=== PATIENT | male | born 1955 | race Caucasian/White ===

== ENCOUNTER → 2019-03-19 12:52 | Outpatient (BNVA) | payer OTHER, SELFPAY | PROVIDERS: PCP Family Medicine; Visit Provider Nurse Practitioner Adult Health | DX: G62.9 Polyneuropathy, unspecified (principal); G61.0 Guillain-Barre syndrome; E11.9 Type 2 diabetes mellitus without complications; I10 Essential (primary) hypertension | CPT/HCPCS: 99213 ==

== ENCOUNTER 2019-05-16 11:29 | Outpatient (CLI) | payer OTHER, SELFPAY ==
[2019-05-16 13:06] LABS: HCT 46.7 % (40.0-50.0); HGB 16.2 g/dL (13.5-17.5); Mean Corp. HGB Concentration 34.7 g/dL (32.0-36.0); Mean Corpuscular Hemoglobin 31.9 pg (27.0-33.0); Mean Corpuscular Volume 91.9 fL (80-95); Mean Platelet Volume 11.4 fL (8.0-11.0); Platelet Count 214 x1000/uL (130-400); RBC 5.08 m/cumm (4.50-6.00); RBC Distribution Width 12.8 % (11.8-14.1); White Blood Cell Count 9.41 k/cumm (4.4-10.8)
[2019-05-16 13:18] LABS: ALT 31 U/L (12-78); AST 15 U/L (15-37); Albumin 3.8 g/dL (3.4-5.0); Alkaline Phosphatase 89 U/L (46-116); Anion Gap 10.9 mmol/L (3-11); BUN 16 mg/dL (7-18); Bilirubin, Total 0.9 mg/dL (0.2-1.0); CO2 27.1 mmol/L (21.0-32.0); CREATININE 0.99 mg/dL (0.70-1.30); Calculated LDL 81 mg/dL; Chloride 101 mmol/L (98-107); Cholesterol 141 mg/dL (50-200); Glucose 202 mg/dL (70-100); HDL Cholesterol 41 mg/dL (40-60); Potassium 4.1 mmol/L (3.5-5.1); Sodium 139 mmol/L (136-145); Total Protein 6.9 g/dL (6.4-8.2); Triglyceride 99 mg/dL (30-150)
[2019-05-16 13:19] LABS: Bilirubin Negative (Negative); Blood Negative (Negative); Clarity Clear (Clear); Glucose >=1000 mg/dL (Negative); Ketones Negative (Negative); Leukocyte Esterase Negative (Negative); Nitrite Negative (Negative); Specific Gravity 1.025 (1.005-1.025); Urobilinogen 0.2 EU/dL (Up TO 0.2)
[2019-05-16 13:21] LABS: Hemoglobin A1C 8.4 % (4.5-6.2)
[2019-05-16 13:46] LABS: Epithelial Cells Few HPF (Negative); RBC Negative (0-2); WBC 0-2 HPF (0-5)
[2019-05-16 13:47] LABS: Bacteria Few HPF (Negative); C & S Indicated? No; Casts Negative LPF (Negative); Crystals Negative HPF (Negative); Mucus Trace (Negative); Other Cells Few Spermatozoa (Negative)
[2019-05-17 10:32] LABS: PSA, Diagnostic <0.1 ng/ml (0-4.5)
== END 2019-05-16 11:49 ==
PROVIDERS: PCP Family Medicine; Visit Provider Family Medicine
DX: E11.9 Type 2 diabetes mellitus without complications (principal); E78.5 Hyperlipidemia, unspecified; I10 Essential (primary) hypertension; Z85.46 Personal history of malignant neoplasm of prostate; R39.9 Unspecified symptoms and signs involving the genitourinary system
CPT/HCPCS: 36415; 80053; 80061; 83721; 85027; 81003; 81015; 83036; 84153

== ENCOUNTER 2020-03-29 11:37 | Emergency (ER) | payer OTHER, SELFPAY ==
[2020-03-29] VITALS (27 sets, daily range): BP systolic 101–133; BP diastolic 64–85; PULSE 54–87; RESP 13–23; TEMP 36.6–36.7; O2SAT 93–98
--- NOTE | 2020-03-29 11:43 | W.ED.GENAD ---
Discharge Plan Disposition Patient Disposition: HOME Condition: Good Discharge Details Chief Complaint: SOB Clinical Impression: CHF (congestive heart failure) Primary Care Provider: Roddy Patino ED Provider: Sana Huntley Home Meds and New Rx's Prescriptions: Continued sotalol 120 mg tablet 120 mg PO DAILY RF: 0 cyanocobalamin (vitamin B-12) [Vitamin B-12] 1,000 MCG tablet 1,000 mcg PO DAILY Qty: 30 RF: 0 amlodipine 5 mg tablet 5 mg PO DAILY Qty: 90 RF: 3 hydrochlorothiazide 25 mg tablet 25 mg PO DAILY Qty: 90 RF: 4 pravastatin [Pravachol] 40 mg tablet 40 mg PO DAILY Qty: 90 RF: 4 terazosin 1 mg capsule 1 mg PO DAILY Qty: 90 RF: 3 lisinopril 40 mg tablet 40 mg PO DAILY Qty: 90 RF: 4 No Action lidocaine 5 % cream 1 applic TP QID PRN (Reason: pain) Qty: 45 RF: 2 Eliquis 5 mg tablet 5 mg PO BID Qty: 60 RF: 11 metformin 500 mg tablet 500 mg PO BID Qty: 60 RF: 11 Discharge Instructions Instructions: Heart Failure (ED) Additional Instructions: Please make dietary changes as discussed. Please take Lasix once daily temporarily as prescribed. Try to elevate your lower extremities to help fluid come out of your legs. Please follow-up with your primary care the beginning of the week, please call Tuesday morning to schedule follow-up. If you develop chest pain, increased shortness of breath, shortness of breath that limits your activities, lightheadedness, weakness or other new/worsening symptom please seek care urgently once again. Referrals: Roddy Patino [Primary Care Provider] - Discharge Data Discharge Date/Time-TO BE ENTERED AT DEPARTURE: 03/29/20 14:01 Medical Decision Making Patient is a pleasant 64-year-old gentleman presenting due to complaint of shortness of breath. States that shortness of breath began a few days ago. He is noted it is worse with exertion. Denies CP. Denies fevers or chills. No cough. Denies any hemoptysis. No pleuritic chest discomfort. Past medical history significant for alcohol abuse, atrial flutter, cardiomyopathy, diabetes, hypertension, [employer] [employer]ples? syndrome, hyperlipidemia, neuropathy, [place], neoplasm of prostate. Patient has been recommended to use Eliquis historically and states that as he was nervous about side effects, he never started the medication. Patient does report a 6 to 8 pound weight gain over the past few days. Has noted increased bilateral lower extremity swelling. He denies this feeling like his [place]ples? historically. He does report chronic discomfort in bilateral lower extremities since the onset of his [place]ples?. However, states the swelling is new. Reports that the swelling began to increase after the shortness of breath. Denies being short of breath at rest. EKG was reviewed by Dr. Verduzco. Patient is an irregularly irregular rhythm consistent with atrial fibrillation. Low voltage noted. Nonspecific T wave abnormality but no evidence of STEMI or acute ischemic changes. On exam, patient is resting comfortably. He does not appear to be in any respiratory distress. Vital signs are reassuring without abnormality. His physical exam is most notable for swelling in his bilateral lower extremities. I am concerned for potential CHF exacerbation. He does report that he has had this historically. No chest pain no evidence of ACS. Lungs are clear and patient does not have symptoms consistent with infectious etiology. Denies any back pain or symptoms consistent with dissection. I did consider PE but find this less likely based on vital signs. However, as he has been having this dyspnea, particularly with exertion, I do feel that evaluation with a d-dimer would be appropriate. Labs reviewed. Mild anemia with a hemoglobin of 12.1. Potassium slightly low at 132. Glucose elevated to 81, this is baseline for the patient. BNP is elevated at 3800. Troponins remain still less than 0.05. D-dimer pending. We will begin the patient on Lasix. Chest x-ray reviewed by radiologist: FINDINGS: Lungs: Mild pulmonary vascular congestion. No focal consolidation. Pleural space: Unremarkable. No pleural effusion. No pneumothorax. Heart/Mediastinum: Unremarkable. No cardiomegaly. Bones/joints: Unremarkable. IMPRESSION: Mild pulmonary vascular congestion. D-dimer is less than 500. Reassess the patient. He has good urinary output. Is feeling somewhat improved and is requesting discharge. Patient diagnosed with CHF exacerbation. I do not see CHF listed in his history but based on his description, it sounds of his been treated for this historically. States that when he was at [facility] previously he did have bilateral lower extremity swelling and did require Lasix for quite some time. He states that his diet has changed recently with COVID and that he is been having a large amount of [employer] ice cream. This may be contributing to his swelling. We did discuss dietary changes to help prevent this in the future. Encourage elevation of his lower extremities. We discussed inpatient versus outpatient management and he would prefer discharge at this time. He states that shortness of breath is not limiting his ability to perform his daily activities. We will continue him on Lasix for the next few days and I have asked that he follow-up with primary care the beginning of next week. Patient was given strict return precautions. All his questions and concerns were addressed and he is in agreement this plan. HPI General Mode of arrival: ambulatory. Date/Time Provider Initiated Documentation: 03/29/20 11:43. Limitations to Documentation: no limitations. Information obtained by: patient and RN notes reviewed. History of Present Illness 64 year old M presents to the emergency department with the chief complaint of shortness of breath, described as moderate and similar to prior episodes, Quality is described as other (no pain), Patient reports no radiation. Patient started experiencing this day(s) (2-4) and it has been intermittent. Immobilization improves symptom(s), No exacerbating factors reported . Patient notes shortness of breath; denies chest pain, cough, fever/chills, loss of appetite, nausea/vomiting, rash, syncope and weakness. Patient did receive the following treatments prior to arrival, none (states that he ran out of his inhaler) Related Data Home Medications Medication Instructions Recorded Confirmed cyanocobalamin (vitamin B-12) 1,000 mcg PO DAILY #30 tab-cap 02/22/17 04/01/20 [Vitamin B-12] sotalol 120 mg tablet 120 mg PO DAILY tab 06/20/18 04/01/20 amlodipine 5 mg tablet 5 mg PO DAILY #90 tab-cap 07/10/19 04/01/20 hydrochlorothiazide 25 mg tablet 25 mg PO DAILY #90 tab-cap 07/10/19 04/01/20 pravastatin 40 mg tablet 40 mg PO DAILY #90 tab-cap 07/10/19 04/01/20 terazosin 1 mg capsule 1 mg PO DAILY #90 cap 07/10/19 04/01/20 lisinopril 40 mg tablet 40 mg PO DAILY #90 tab-cap 01/09/20 04/01/20 apixaban 5 mg tablet 5 mg PO BID #60 tab 04/01/20 04/01/20 lidocaine 5 % topical cream 1 applic TP QID PRN #45 gm 04/01/20 04/01/20 metformin 500 mg tablet 500 mg PO BID #60 tab 04/01/20 04/01/20 Previous Rx's Medication Instructions Recorded amlodipine 5 mg tablet 5 mg PO DAILY #90 tab-cap 07/10/19 hydrochlorothiazide 25 mg tablet 25 mg PO DAILY #90 tab-cap 07/10/19 pravastatin 40 mg tablet 40 mg PO DAILY #90 tab-cap 07/10/19 terazosin 1 mg capsule 1 mg PO DAILY #90 cap 07/10/19 lisinopril 40 mg tablet 40 mg PO DAILY #90 tab-cap 01/09/20 apixaban 5 mg tablet 5 mg PO BID #60 tab 04/01/20 lidocaine 5 % topical cream 1 applic TP QID PRN #45 gm 04/01/20 metformin 500 mg tablet 500 mg PO BID #60 tab 04/01/20 Allergies Allergy/AdvReac Type Severity Reaction Status Date / Time codeine Allergy Severe HIVES Unverified 04/01/20 12:44 Tetanus Vaccines and Toxoid AdvReac Severe H/O Unverified 04/01/20 12:44 [place] Review of Systems Constitutional Constitutional: Reports as per HPI, Denies chills, Denies fever(s), Denies headache(s), Denies lethargy and Denies poor appetite Eyes Eyes: Denies change in vision ENT Ears, Nose, Mouth, and Throat: Denies dizziness and Denies headache(s) Cardiovascular Cardiovascular: Reports as per HPI, Reports dyspnea and Reports dyspnea on exertion Respiratory Respiratory: Reports as per HPI, Denies chest congestion, Denies cough, Denies pain on inspiration, Denies pain with cough, Reports dyspnea, Reports dyspnea on exertion and Denies wheezing Gastrointestinal Gastrointestinal: Reports as per HPI, Denies abdominal pain, Denies diarrhea, Denies nausea and Denies vomiting Genitourinary Genitourinary: Denies system reviewed and no additional complaints, except as documented (denies change in urinary habits) Musculoskeletal Musculoskeletal: Reports as per HPI and Denies back pain Integumentary/Breasts Skin/Breast: Reports as per HPI and Denies rash Neurologic Neurologic: Reports as per HPI, Denies dizziness and Denies headache(s) Allergic/Immunologic Allergic/Immunologic: Denies wheezing [facility] Social History Smoking/Tobacco Use Status: Former Tobacco Use Quit Date: 10/17/72 Second Hand Exposure: Yes Alcohol Intake: current Alcohol Intake frequency: 0-2 drinks per day Alcohol type: beer Drug use: Daily Substance use type: former substance user and marijuana Caregiver/Support person: No Household members: none Housing: house Pets and animals: Yes Pets and animals: dog(s) Sexually active: No Do you think of yourself as: straight/heterosexual Current gender identity: decline to answer What is your relationship status?: never How often do you talk on the phone with friends or family?: three or more times per week How often do you get together with friends or relatives?: decline to answer How often do you attend faith or nondenominational services?: decline to answer Do you belong to any clubs or organized social groups?: no Panel score (0-1 are the most socially isolated patients): 1 What type of physical activity do you participate in: none Sheri/Mu-Ism: None Special sheri needs: No Seatbelt use: always Drive intox or ride w/intox ready mix truck driver: No Do you feel safe at home: Yes Do you feel safe in your relationship?: Yes Exam Const General: cooperative, healthy appearing, comfortable, no acute distress and well developed Nutritional Appearance: well nourished and overweight Orientation: alert, awake and oriented x3 HENMT Head: normal to inspection Ears: hearing grossly normal bilaterally Mouth: moist mucous membranes Chest Chest: normal inspection of the chest, normal palpation of entire chest wall and no crepitus Resp Effort & Inspection: normal respiratory effort, able to speak in complete sentences and no respiratory distress Auscultation: clear to auscultation bilaterally, no rales, no rhonchi and no wheezes Cardio Rate: regular rate Rhythm: regular rhythm Heart Sounds: S1 normal and S2 normal GI Inspection: normal to inspection, no edema and non-distended Palpation: soft, no hepatosplenomegaly, not firm, no guarding, not rigid and nontender Auscultation: normal bowel sounds Back/Spine/Pelvis Back: no CVA tenderness Thoracic/Lumbar Spine: thoracic and lumbar spine normal to inspection Skin General skin exam: no rashes or lesions noted Trauma: no lacerations or abrasions Neuro General: patient alert, patient awake and patient oriented x3 Cognition: normal cognition Speech: speech normal Gait: normal gait Extrem General: normal to inspection, capillary refill normal, no calf tenderness, normal gait and pedal edema bilaterally Psych Appearance: grossly normal and well kempt Mental Status: mental status grossly normal Speech and Movement: speech and movement normal
--- NOTE | 2020-03-29 11:45 | DI.RAD_ITS ---
EXAM: XR PORTABLE CHEST AP CLINICAL HISTORY: SOB TECHNIQUE: 2D digital imaging was performed. COMPARISON: CR CHEST 2 VIEWS PA,LAT from 11/20/2016 FINDINGS: LUNGS: Mild underlying fibrotic changes. No pleural effusion or focal consolidation is seen. HEART: Mildly enlarged. Mild vascular prominence. Leads overlie the chest. IMPRESSION: Mild vascular prominence could indicate mild CHF vs chronic changes. DATA REPOSITORY: RADIATION DOSE DELIVERED:
[2020-03-29 12:23] LABS: Abs Immature Grans 0.03 k/cumm (0.0-0.09); Absolute Basophil Count 0.01 k/cumm (0.0-0.2); Absolute Eosinophil Count 0.09 k/cumm (0.0-0.7); Absolute Lymphocyte Count 1.42 k/cumm (1.2-3.4); Absolute Neutrophil Count 5.73 k/cumm (1.2-6.7); Basophils % 0.1; Eosinophils % 1.1; HCT 36.1 % (40.0-50.0); HGB 12.1 g/dL (13.5-17.5); Immature Grans % 0.4 %; Lymphocytes % 17.4; Mean Corp. HGB Concentration 33.5 g/dL (32.0-36.0); Mean Corpuscular Hemoglobin 32.2 pg (27.0-33.0); Mean Platelet Volume 9.8 fL (8.0-11.0); Platelet Count 251 x1000/uL (130-400); RBC 3.76 m/cumm (4.50-6.00); RBC Distribution Width 12.2 % (11.8-14.1); White Blood Cell Count 8.18 k/cumm (4.4-10.8)
[2020-03-29 12:40] LABS: INR 1.1 (0.9-1.1); PTT Activated 26.2 sec (21.0-31.4)
[2020-03-29 12:42] LABS: ALT 38 U/L (16-63); AST 18 U/L (15-37); Alkaline Phosphatase 98 U/L (46-116); Anion Gap 5.6 mmol/L (3-11); BUN 16 mg/dL (7-18); Bilirubin, Total 0.6 mg/dL (0.2-1.0); CO2 31.4 mmol/L (21.0-32.0); CREATININE 1.05 mg/dL (0.70-1.30); Calcium 8.8 mg/dL (8.5-10.1); Chloride 95 mmol/L (98-107); Glucose 281 mg/dL (74-106); Magnesium 1.9 mg/dL (1.8-2.4); NT-proBNP 3872 pg/mL (<300); Potassium 4.3 mmol/L (3.5-5.1); Sodium 132 mmol/L (136-145); Total Protein 6.7 g/dL (6.4-8.2); Troponin I < 0.05 ng/mL (<0.06)
--- NOTE | 2020-03-29 12:57 | DI.VRAD_ITS ---
PROCEDURE INFORMATION: Exam: XR Chest, 1 View Exam date and time: 03/29/2020 12:42 PM Age: 64 years old Clinical indication: Shortness of breath TECHNIQUE: Imaging protocol: XR of the chest Views: 1 view. COMPARISON: CR CHEST 2 VIEWS PA,LAT 11/20/2016 9:04 AM FINDINGS: Lungs: Mild pulmonary vascular congestion. No focal consolidation. Pleural space: Unremarkable. No pleural effusion. No pneumothorax. Heart/Mediastinum: Unremarkable. No cardiomegaly. Bones/joints: Unremarkable. IMPRESSION: Mild pulmonary vascular congestion. Dictated and Authenticated by: Ghada English MD. Ordering:FLOWER Hood MD
[2020-03-29] MEDS: Furosemide 20 MG/2 ML VIAL IVP (13:04)
[2020-03-29 13:25] LABS: D-Dimer 498 ng/mlFEU (<500)
== END 2020-03-29 14:01 | disposition home or self-care (01) ==
LOC: ER 14:01
PROVIDERS: Emergency Provider Physician Assistant; PCP Family Medicine
DX: I50.9 Heart failure, unspecified (principal); R63.5 Abnormal weight gain; I11.0 Hypertensive heart disease with heart failure; E11.9 Type 2 diabetes mellitus without complications; Z87.891 Personal history of nicotine dependence
CPT/HCPCS: 36415; 80053; 93005; 96374; 99285; 71045; 83735; 83880; 84484; 85025; 85379; 85610; 85730; 93010; J1941

== ENCOUNTER → 2020-04-01 12:29 | Outpatient (BNVA) | payer OTHER, SELFPAY | PROVIDERS: PCP Family Medicine; Visit Provider Nurse Practitioner Adult Health | DX: E11.42 Type 2 diabetes mellitus with diabetic polyneuropathy; G61.0 Guillain-Barre syndrome; I10 Essential (primary) hypertension; Z79.84 Long term (current) use of oral hypoglycemic drugs | CPT/HCPCS: 99213 ==

== ENCOUNTER 2020-04-16 04:29 | Outpatient (CLI) | payer OTHER, SELFPAY ==
[2020-04-16 12:53] LABS: HCT 39.2 % (40.0-50.0); HGB 12.7 g/dL (13.5-17.5); Mean Corp. HGB Concentration 32.4 g/dL (32.0-36.0); Mean Corpuscular Hemoglobin 30.8 pg (27.0-33.0); Mean Corpuscular Volume 94.9 fL (80-95); Mean Platelet Volume 10.5 fL (8.0-11.0); Platelet Count 288 x1000/uL (130-400); RBC 4.13 m/cumm (4.50-6.00); RBC Distribution Width 12.5 % (11.8-14.1); Reticulocyte 2.2 % (0.5-2.4); White Blood Cell Count 8.47 k/cumm (4.4-10.8)
[2020-04-16 13:04] LABS: Iron 78 ug/dL (65-175); Total Iron Binding Capacity 299 ug/dL (250-450); Transferrin Sat 26 % (20-55)
[2020-04-16 13:18] LABS: Ferritin 330 ng/mL (26-388)
== END 2020-04-16 04:49 ==
PROVIDERS: PCP Family Medicine; Visit Provider Family Medicine
DX: D64.9 Anemia, unspecified (principal)
CPT/HCPCS: 36415; 85027; 82728; 83540; 83550; 85045

== ENCOUNTER 2020-08-09 13:29 | Emergency (ER) | payer OTHER, SELFPAY ==
[2020-08-09 13:48] VITALS: BP 115/62; PULSE 74; RESP 18; TEMP 36.6; O2SAT 98
--- NOTE | 2020-08-09 14:00 | W.ED.GENAD ---
Discharge Plan Disposition Patient Disposition: HOME Condition: Good Discharge Details Clinical Impression: Muscle spasm Primary Care Provider: Roddy Patino ED Provider: Sana Huntley Home Meds and New Rx's Prescriptions: New lidocaine [Lidoderm] 5 % adhesive patch,medicated 1 patch topical DAILY PRN (Reason: pain) Qty: 15 RF: 0 methocarbamol 500 mg tablet 500 mg PO TID PRN (Reason: muscle spasm) Qty: 14 RF: 0 Continued (DME) blood-glucose meter [Blood Glucose Monitoring] Kit See Rx Instructions .ROUTE .MEDSUPPLY Qty: 1 RF: 0 (DME) Blood Glucose Test Strip See Rx Instructions .ROUTE .MEDSUPPLY Qty: 200 RF: 3 (DME) lancets 30 gauge misc See Rx Instructions .ROUTE .MEDSUPPLY Qty: 200 RF: 3 metformin 500 mg tablet 1,000 mg PO .q12 Qty: 360 RF: 3 cyanocobalamin (vitamin B-12) [Vitamin B-12] 1,000 MCG tablet 1,000 mcg PO DAILY Qty: 30 RF: 0 amlodipine 5 mg tablet 5 mg PO DAILY Qty: 90 RF: 3 Eliquis 5 mg tablet 5 mg PO BID Qty: 60 RF: 11 hydrochlorothiazide 25 mg tablet 25 mg PO DAILY Qty: 90 RF: 4 lidocaine 5 % cream 1 applic TP QID PRN (Reason: pain) Qty: 45 RF: 2 lisinopril 40 mg tablet 40 mg PO DAILY Qty: 90 RF: 4 pravastatin [Pravachol] 40 mg tablet 40 mg PO DAILY Qty: 90 RF: 4 terazosin 1 mg capsule 1 mg PO DAILY Qty: 90 RF: 3 sotalol 120 mg tablet 120 mg PO DAILY Qty: 90 RF: 3 Discharge Instructions Instructions: Muscle Spasm (ED) Additional Instructions: Your exam and history is most concerning for muscle spasm. Please increase water intake. Please encourage frequent ambulation and gentle stretching as discussed. Referral for physical therapy is attached. Please continue with your Tylenol 1000 mg 3 times daily. You may use the methocarbamol as prescribed to help with muscle spasm. Please do not drive while taking this medication as it can cause sedation. You may continue with the Lidoderm patches. These are available [id number]. Please use as directed on the box. Please keep your upcoming appointment with your primary care provider. If you develop any new radiating pain, fevers or chills, rash, weakness, sensory changes or other new/worsening symptom please seek care urgently once again. Stand Alone Forms: Physical Therapy Referral Referrals: Roddy Patino [Primary Care Provider] - Discharge Data Discharge Date/Time-TO BE ENTERED AT DEPARTURE: 08/09/20 15:37 Medical Decision Making Patient is an 64-year-old gentleman presenting today with chief complaint of right lower back pain. Reports this pain began approximately 2 weeks ago after moving large amount of furniture. States the pain has been consistent. Notes it is worse after prolonged periods of sitting or laying. States is worse in the morning. He is also combine driver occupationally and reports that after sitting for prolonged period of time is increased discomfort. He denies any fevers or chills. No fall or trauma. Denies any radiating pain. No midline tenderness. He has not had pain like this historically On exam, patient is resting comfortably. He has good range of motion of his back, forward to motion of his right lower extremity. No midline pain. No paraspinal tenderness. Pain is more lateral over the lumbar area of the back. No saddle paresthesias, 2+ distal pulses. There is a focal area of swelling associated discomfort that is consistent with muscle spasm. I did evaluate and ultrasound do not see any evidence to suggest an infection. Patient will be treated with Tylenol and lidocaine. We will also refer to physical therapy. We discussed the utility of muscle relaxants. He would like to try this for home use. Is he did drive himself here, will hold off on administering this at this point. He will not drive will take this medication. Return precautions were discussed. We will follow up with his primary care in the next 1 to 2 weeks for reevaluation. All his questions and concerns were addressed and is agreed with plan. HPI General Mode of arrival: ambulatory. Date/Time Provider Initiated Documentation: 08/09/20 14:00. Limitations to Documentation: no limitations. Information obtained by: patient and RN notes reviewed. History of Present Illness 64 year old M presents to the emergency department with the chief complaint of right lower back pain, described as moderate, with intensity rated at 7. Quality is described as aching, and is localized to the back. Patient reports no radiation. Patient started experiencing this week(s) (2) and it has been constant. Immobilization improves symptom(s), Movement worsens symptoms . Patient notes no other symptoms.. Patient did receive the following treatments prior to arrival, none Related Data Home Medications Medication Instructions Recorded Confirmed cyanocobalamin (vitamin B-12) 1,000 mcg PO DAILY #30 tab-cap 02/22/17 05/21/20 [Vitamin B-12] amlodipine 5 mg tablet 5 mg PO DAILY #90 tab-cap 04/24/20 05/21/20 apixaban 5 mg tablet 5 mg PO BID #60 tab 04/24/20 05/21/20 hydrochlorothiazide 25 mg tablet 25 mg PO DAILY #90 tab-cap 04/24/20 05/21/20 lidocaine 5 % topical cream 1 applic TP QID PRN #45 gm 04/24/20 05/21/20 lisinopril 40 mg tablet 40 mg PO DAILY #90 tab-cap 04/24/20 05/21/20 pravastatin 40 mg tablet 40 mg PO DAILY #90 tab-cap 04/24/20 05/21/20 terazosin 1 mg capsule 1 mg PO DAILY #90 cap 04/24/20 05/21/20 Blood Glucose Test #200 each NS 05/21/20 05/21/20 blood-glucose meter #1 each 05/21/20 05/21/20 lancets 30 gauge #200 each 05/21/20 05/21/20 metformin 500 mg tablet 1,000 mg PO .q12 #360 tab 05/21/20 05/21/20 sotalol 120 mg tablet 120 mg PO DAILY #90 tab 07/27/20 lidocaine [Lidoderm] 1 patch TOPICAL DAILY PRN #15 ea 08/09/20 methocarbamol 500 mg PO TID PRN #14 tab 08/09/20 Previous Rx's Medication Instructions Recorded amlodipine 5 mg tablet 5 mg PO DAILY #90 tab-cap 04/24/20 apixaban 5 mg tablet 5 mg PO BID #60 tab 04/24/20 hydrochlorothiazide 25 mg tablet 25 mg PO DAILY #90 tab-cap 04/24/20 lidocaine 5 % topical cream 1 applic TP QID PRN #45 gm 04/24/20 lisinopril 40 mg tablet 40 mg PO DAILY #90 tab-cap 04/24/20 pravastatin 40 mg tablet 40 mg PO DAILY #90 tab-cap 04/24/20 terazosin 1 mg capsule 1 mg PO DAILY #90 cap 04/24/20 Blood Glucose Test #200 each NS 05/21/20 blood-glucose meter #1 each 05/21/20 lancets 30 gauge #200 each 05/21/20 metformin 500 mg tablet 1,000 mg PO .q12 #360 tab 05/21/20 sotalol 120 mg tablet 120 mg PO DAILY #90 tab 07/27/20 lidocaine [Lidoderm] 1 patch TOPICAL DAILY PRN #15 ea 08/09/20 methocarbamol 500 mg PO TID PRN #14 tab 08/09/20 Allergies Allergy/AdvReac Type Severity Reaction Status Date / Time codeine Allergy Severe HIVES Unverified 08/09/20 13:58 Tetanus Vaccines and Toxoid AdvReac Severe H/O Unverified 08/09/20 13:58 [place] General Stated Complaint: Nk/Back Pain GALE: 4 Review of Systems Constitutional Constitutional: Reports as per HPI, Denies chills, Denies fatigue, Denies fever(s), Denies frequent falls and Denies headache(s) Eyes Eyes: Denies change in vision ENT Ears, Nose, Mouth, and Throat: Denies headache(s) Cardiovascular Cardiovascular: Denies chest pain, Denies dyspnea and Denies dyspnea on exertion Respiratory Respiratory: Denies cough, Denies dyspnea and Denies dyspnea on exertion Gastrointestinal Gastrointestinal: Denies abdominal pain, Denies change in bowel habits and Denies fecal incontinence Genitourinary Genitourinary: Reports as per HPI, Denies urinary hesitancy and Denies urinary incontinence Musculoskeletal Musculoskeletal: Reports as per HPI, Reports back pain, Denies muscle weakness, Denies numbness, Denies radiating pain into limb, Reports stiffness and Denies tingling Integumentary/Breasts Skin/Breast: Reports as per HPI and Denies rash Neurologic Neurologic: Reports as per HPI, Denies frequent falls, Denies headache(s), Denies localized weakness, Denies numbness, Denies radicular pain, Denies sensory deficit, Denies tingling and Denies paresthesias Endocrine Endocrine: Denies fatigue [facility] Medical History (Updated 08/09/20 @ 15:32 by RODERICK Lovett) Anemia BPH (benign prostatic hyperplasia) Diabetes mellitus (03/14/13) Essential hypertension (09/11/13) 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 Primary malignant neoplasm of prostate S/P Implanted seeds-09/24 Surgical History Hx of melanoma excision Family History Mother , 78 Cancer Father , 83 Brain cancer Brother Essential hypertension Brother Diabetes Brother Stroke Social History Smoking/Tobacco Use Status: Former Tobacco Use Quit Date: 10/17/72 Second Hand Exposure: Yes Alcohol Intake: current Alcohol Intake frequency: a few times a week Alcohol type: beer Drug use: Occasionally Substance use type: former substance user and marijuana Caregiver/Support person: No Housing: house Pets and animals: Yes Pets and animals: dog(s) Sexually active: No Do you think of yourself as: straight/heterosexual What is your relationship status?: never How often do you talk on the phone with friends or family?: three or more times per week How often do you get together with friends or relatives?: decline to answer How often do you attend protestant or presybeterian services?: decline to answer Do you belong to any clubs or organized social groups?: no Panel score (0-1 are the most socially isolated patients): 1 What type of physical activity do you participate in: none Sheri/Lutheran: None Special sheri needs: No Seatbelt use: always Helmet use: Yes Drive intox or ride w/intox combine driver: No Do you feel safe at home: Yes Do you feel safe in your relationship?: Yes Exam Const General: cooperative, healthy appearing, comfortable, no acute distress, well developed and well groomed Nutritional Appearance: well nourished and overweight Orientation: alert and awake Eyes General: appearance normal, both eyes and all related structures Neck Neck: normal visual inspection, full ROM, no lymphadenopathy and no meningeal signs Resp Effort & Inspection: normal respiratory effort and able to speak in complete sentences Auscultation: clear to auscultation bilaterally, no rales, no rhonchi and no wheezes Cardio Rate: regular rate Rhythm: regular rhythm Heart Sounds: S1 normal and S2 normal Back/Spine/Pelvis Back/spine/pelvis image: 1. focal area of discomfort and swelling consistent with muscle spasm. Area explored with US, no fluid collection noted. No erythema. No rash. No midline tenderness. Range of motion of the right lower extremity although extension backwards does increase the discomfort over this area. He also has more of a tightness with forward flexion. He has full range of motion of his spine otherwise. Skin General skin exam: no rashes or lesions noted Neuro General: patient alert and patient awake Cognition: normal cognition Speech: speech normal Gait: normal gait Motor: muscle tone normal throughout, strength 5/5 throughout, no movement abnormalities noted and no fasciculations Sensory Exam: no sensory deficits noted (no saddle paresthesias) DTR's: Rt Patellar: 2+, Lt Patellar: 2+, Rt Ankle: 2+ and Lt Ankle: 2+ Extrem General: normal to inspection, full ROM, capillary refill normal, no joint enlargement, no pedal edema, no calf tenderness and normal gait Psych Appearance: grossly normal and well kempt Mental Status: mental status grossly normal Speech and Movement: speech and movement normal Course Vital Signs Vital signs: Vital Signs Temperature 36.6 C 08/09/20 13:48 Pulse 74 08/09/20 13:48 Respiratory Rate 18 08/09/20 13:48 Blood Pressure 115/62 08/09/20 13:48 Pulse Oximetry 98 08/09/20 13:48 Temperature 36.6 C 08/09/20 13:48 Temperature Source Tympanic 08/09/20 13:48 Pulse 74 08/09/20 13:48 Respiratory Rate 18 08/09/20 13:48 Respiratory Effort Non-Labored 08/09/20 13:51 Blood Pressure 115/62 08/09/20 13:48 Pulse Oximetry 98 08/09/20 13:48 Oxygen Delivery Method Room Air 08/09/20 13:48 Oxygen Flow Rate 0 08/09/20 13:48 Pain Level 7 08/09/20 13:48
[2020-08-09] MEDS: Lidocaine 5% Patch 1 PATCH TP (15:37)
== END 2020-08-09 15:37 | disposition home or self-care (01) ==
PROVIDERS: Emergency Provider Physician Assistant; PCP Family Medicine
DX: M62.830 Muscle spasm of back (principal); Y93.E6 Activity, residential relocation; I10 Essential (primary) hypertension; E11.9 Type 2 diabetes mellitus without complications; Z79.84 Long term (current) use of oral hypoglycemic drugs
CPT/HCPCS: 99283

== ENCOUNTER 2020-08-18 03:26 | Emergency (ER) | payer OTHER, SELFPAY ==
[2020-08-18 03:36] VITALS: BP 172/88; PULSE 95; RESP 16; TEMP 36.6; O2SAT 97
--- NOTE | 2020-08-18 03:49 | W.ED.GENAD ---
Discharge Plan Disposition Patient Disposition: HOME Condition: Good Discharge Details Clinical Impression: Pain of right sacroiliac joint, Lumbago Primary Care Provider: Roddy Patino ED Provider: Dion Hurley Home Meds and New Rx's Prescriptions: New prednisone 50 MG tablet 50 mg PO DAILY Qty: 5 RF: 0 diazepam [Valium] 5 mg tablet 5 mg PO BID PRNQty: 8 RF: 0 Continued (DME) blood-glucose meter [Blood Glucose Monitoring] Kit See Rx Instructions .ROUTE .MEDSUPPLY Qty: 1 RF: 0 (DME) Blood Glucose Test Strip See Rx Instructions .ROUTE .MEDSUPPLY Qty: 200 RF: 3 (DME) lancets 30 gauge misc See Rx Instructions .ROUTE .MEDSUPPLY Qty: 200 RF: 3 metformin 500 mg tablet 1,000 mg PO .q12 Qty: 360 RF: 3 cyanocobalamin (vitamin B-12) [Vitamin B-12] 1,000 MCG tablet 1,000 mcg PO DAILY Qty: 30 RF: 0 amlodipine 5 mg tablet 5 mg PO DAILY Qty: 90 RF: 3 Eliquis 5 mg tablet 5 mg PO BID Qty: 60 RF: 11 hydrochlorothiazide 25 mg tablet 25 mg PO DAILY Qty: 90 RF: 4 lisinopril 40 mg tablet 40 mg PO DAILY Qty: 90 RF: 4 pravastatin [Pravachol] 40 mg tablet 40 mg PO DAILY Qty: 90 RF: 4 terazosin 1 mg capsule 1 mg PO DAILY Qty: 90 RF: 3 sotalol 120 mg tablet 120 mg PO DAILY Qty: 90 RF: 3 methocarbamol 500 mg tablet 500 mg PO TID PRN (Reason: muscle spasm) Qty: 14 RF: 0 Discharge Instructions Instructions: Low Back Strain (ED) Additional Instructions: Has this time your x-ray shows no evidence of fracture. I suspect your pain is a combination of arthritis and irritation from your SI joint but then worsens a spasm in your back. At this time your signs and symptoms are clinically consistent with a back sprain. This can cause significant pain and take a fair bit of time to heal. I expect 1 to 2 months for potential resolution. In the meantime do not lift anything greater than 5 pounds for the next 2 weeks. Avoid any significant vigorous physical activity. Perform easy gentle regular activities at home without any significant bending or lifting. Please take the steroids as directed. Please take the Valium as directed but do not take it when driving or operating any vehicles or heavy machinery, swimming, taking long baths, or operating firearms. Please use a heating pad as often as possible on your back. Perform daily gentle stretches on your back. Please continue to take the Tylenol. You can take 1000 mg of Tylenol every 6 hours. If you notice any worsening of your symptoms, or any new symptoms such as vomiting, diarrhea, fever, chills, shortness of breath, chest pain, numbness or tingling in your groin or legs, weakness in your legs, loss of control for your bowels or bladder, or fainting , please return immediately to the emergency department for reevaluation. Please follow up with your primary care provider as soon as possible for reassessment and reevaluation. As always, it was a pleasure participating in your medical care today. 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 Per patient he has had this pain for years intermittently, however over the last week and 1/2 to 2-week it has returned. He was seen and assessed here in the emergency department just over a week ago, at that time he was prescribed muscle relaxants, Tylenol, Lidoderm patch. The patient states that he had mild improvement initially, and over the last few days the pain has returned. 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 Patient denies any saddle anesthesia, numbness or tingling in the groin, change in sensation when wiping. Patient denies any bowel or bladder incontinence, leakage, or retention. Patient denies any new weakness in the lower extremities, atypical falls or imbalance. Pain is made worse with moving his legs and sitting upright. He denies any recent falls or trauma to his back. He does have PCP follow-up with Dr. Zaragoza this morning. No other complaints at this time. No other modifying factors. Physical exam demonstrates mild right lumbar paraspinal pain as well as mild palpable ropiness over the posterior superior iliac spine. This appears to be the focal location of the patient's pain. He demonstrates no signs of saddle anesthesia, he has good rectal tone, no bowel or bladder incontinence, good dorsiflexion of his great toes bilaterally. Symptoms appearing consistent with cauda equina syndrome, acute cord compression,. Differential is highest for SI joint arthritis in conjunction with paraspinal muscle spasm. With no evidence of central cord etiology or significant acute neurovascular deficit I do not see an indication for emergent MRI imaging. We will get an x-ray to rule out acute occult fracture pathology of the SI joint or L-spine. A localized 10 cc bupivacaine block was placed in the area of tenderness near his SI joint. We will give a 60 mg dose of prednisone, and a single dose of Toradol, and avoid any prolonged NSAID use with his history of blood thinners. We will hold off on giving any muscle relaxants here as the patient did drive himself, and states that no one can come pick him up otherwise. 5:08 AM X-ray results are negative for evidence of acute fracture or significant abnormality, patient pain is improved with therapies given here. I do suspect that his symptoms are combination of SI joint irritation and arthritis in conjunction with lumbar muscle sprain. At this time on reexam the patient continues to show no signs of cauda equina syndrome or central compression. No evidence of acute emergent surgical etiology. Patient will be discharged home with steroids, Valium for home use, and close follow-up with PCP. Recommend continued NSAID use for Tylenol only. Discussed red flags which to return. I have extensively reviewed the treatment plan and discharge instructions with the patient. I have addressed all patient concerns at this time. The patient was made aware of what symptoms to monitor for that would warrant a return to the emergency department. Discussed the plan with the patient, they demonstrate verbal understanding and agreement with our assessment and plan at this time. FINDINGS: Bones/joints: Mild lumbar degenerative disc disease noted. Mild lumbar scoliosis noted convex to the left . No fracture. No subluxation. Soft tissues: Unremarkable. IMPRESSION: No acute findings Mild lumbar degenerative disc disease and scoliosis Thank you for allowing us to participate in the care of your patient. Dictated and Authenticated by: Kapil Pierre MD 08/18/2020 4:54 AM Eastern Time ([place] & [place]) HPI General Date/Time Provider Initiated Documentation: 08/18/20 03:28. 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 Per patient he has had this pain for years intermittently, however over the last week and 1/2 to 2-week it has returned. He was seen and assessed here in the emergency department just over a week ago, at that time he was prescribed muscle relaxants, Tylenol, Lidoderm patch. The patient states that he had mild improvement initially, and over the last few days the pain has returned. 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 Patient denies any saddle anesthesia, numbness or tingling in the groin, change in sensation when wiping. Patient denies any bowel or bladder incontinence, leakage, or retention. Patient denies any new weakness in the lower extremities, atypical falls or imbalance. Pain is made worse with moving his legs and sitting upright. He denies any recent falls or trauma to his back. He does have PCP follow-up with Dr. Zaragoza this morning. No other complaints at this time. No other modifying factors. Related Data Home Medications Medication Instructions Recorded Confirmed cyanocobalamin (vitamin B-12) 1,000 mcg PO DAILY #30 tab-cap 02/22/17 08/18/20 [Vitamin B-12] amlodipine 5 mg tablet 5 mg PO DAILY #90 tab-cap 04/24/20 08/18/20 apixaban 5 mg tablet 5 mg PO BID #60 tab 04/24/20 08/18/20 hydrochlorothiazide 25 mg tablet 25 mg PO DAILY #90 tab-cap 04/24/20 08/18/20 lisinopril 40 mg tablet 40 mg PO DAILY #90 tab-cap 04/24/20 08/18/20 pravastatin 40 mg tablet 40 mg PO DAILY #90 tab-cap 04/24/20 08/18/20 terazosin 1 mg capsule 1 mg PO DAILY #90 cap 04/24/20 08/18/20 Blood Glucose Test #200 each NS 05/21/20 08/18/20 blood-glucose meter #1 each 05/21/20 08/18/20 lancets 30 gauge #200 each 05/21/20 08/18/20 metformin 500 mg tablet 1,000 mg PO .q12 #360 tab 05/21/20 08/18/20 sotalol 120 mg tablet 120 mg PO DAILY #90 tab 07/27/20 08/18/20 methocarbamol 500 mg PO TID PRN #14 tab 08/09/20 08/18/20 diazepam [Valium] 5 mg PO BID PRN #8 tab 08/18/20 prednisone 50 mg PO DAILY #5 tab 08/18/20 Previous Rx's Medication Instructions Recorded amlodipine 5 mg tablet 5 mg PO DAILY #90 tab-cap 04/24/20 apixaban 5 mg tablet 5 mg PO BID #60 tab 04/24/20 hydrochlorothiazide 25 mg tablet 25 mg PO DAILY #90 tab-cap 04/24/20 lisinopril 40 mg tablet 40 mg PO DAILY #90 tab-cap 04/24/20 pravastatin 40 mg tablet 40 mg PO DAILY #90 tab-cap 04/24/20 terazosin 1 mg capsule 1 mg PO DAILY #90 cap 04/24/20 Blood Glucose Test #200 each NS 05/21/20 blood-glucose meter #1 each 05/21/20 lancets 30 gauge #200 each 05/21/20 metformin 500 mg tablet 1,000 mg PO .q12 #360 tab 05/21/20 sotalol 120 mg tablet 120 mg PO DAILY #90 tab 07/27/20 methocarbamol 500 mg PO TID PRN #14 tab 08/09/20 diazepam [Valium] 5 mg PO BID PRN #8 tab 08/18/20 prednisone 50 mg PO DAILY #5 tab 08/18/20 Allergies Allergy/AdvReac Type Severity Reaction Status Date / Time codeine Allergy Severe HIVES Unverified 08/18/20 03:50 Tetanus Vaccines and Toxoid AdvReac Severe H/O Unverified 08/18/20 03:50 Guillian-Ferndale General Stated Complaint: Nk/Back Pain GALE: 3 Review of Systems All systems reviewed & are unremarkable except as noted in HPI and below [facility] Medical History (Updated 08/18/20 @ 04:29 by Dion Hurley DO) Anemia BPH (benign prostatic hyperplasia) Diabetes mellitus (03/14/13) Essential hypertension (09/11/13) 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 Primary malignant neoplasm of prostate S/P Implanted seeds-09/24 Surgical History Hx of melanoma excision Family History Mother , 78 Cancer Father , 83 Brain cancer Brother Essential hypertension Brother Diabetes Brother Stroke Social History Smoking/Tobacco Use Status: Former Tobacco Use Quit Date: 10/17/72 Second Hand Exposure: Yes Smoking risk assessment performed?: Yes Alcohol Intake: current Alcohol Intake frequency: a few times a week Alcohol type: beer Drug use: Occasionally Substance use type: marijuana Caregiver/Support person: No Housing: house Pets and animals: Yes Pets and animals: dog(s) Sexually active: No Do you think of yourself as: straight/heterosexual What is your relationship status?: never How often do you talk on the phone with friends or family?: three or more times per week How often do you get together with friends or relatives?: decline to answer How often do you attend orthodox or gnosticist services?: decline to answer Do you belong to any clubs or organized social groups?: no Panel score (0-1 are the most socially isolated patients): 1 What type of physical activity do you participate in: none Sheri/Religious: None Special sheri needs: No Seatbelt use: always Helmet use: Yes Drive intox or ride w/intox hearse driver: No Do you feel safe at home: Yes Do you feel safe in your relationship?: Yes Exam Narrative Exam Narrative: 1.Const: Well-nourished, Well-developed, appearing stated age 2.Eyes: PERRL, no conjunctival injection, and symmetrical lids. 3.ENT: Atraumatic external nose and ears. Moist MM. Neck: Symmetric, trachea midline, No thyromegaly. 4.CVS: +S1/S2, No murmurs or gallops. Peripheral pulses 2+ and equal in all extremities. Brisk capillary refill in all extremities. 5.RESP: Unlabored respiratory effort. Clear to auscultation bilaterally. No wheezes rales or rhonchi 6.GI: Soft, Nontender/Nondistended, No hepatosplenomegaly. No guarding or rebound. 7.MSK: Normocephalic/Atraumatic, Extremities w/o deformity or ttp No cyanosis or clubbing. No midline tenderness to palpation over the CTLS spine. Patient has +5 out of 5 strength in the lower extremities in dorsiflexion and plantarflexion, knee flexion and extension, hip flexion and extension. Normal strength for dorsiflexion and plantar flexion of the great toe bilaterally. He does have notable worsening of pain though with straight leg raise on the right. Palpation of the right paraspinal musculature and right SI joint seems to demonstrate palpable stringy musculature versus old scar tissue. No abscess or fluctuance. No redness. There is +2 over 2 dorsalis pedis pulses bilaterally. There is normal sensation to the skin with light touch at the foot, knee, and hip. Normal saddle sensation. Good sensation over the deep sural nerve area bilaterally at his baseline. Rectal exam demonstrates good rectal tone and perirectal sensation. Reflexes are +1 over 4 in the patellar reflex bilaterally. 8.Skin: Warm, Dry. No rashes or lesions. 9.Neuro: biostatistics manager II-XII grossly intact. Sensation grossly intact, no focal neurologic deficits. 10.Psych: (AAO) x3. Appropriate mood and affect Course Vital Signs Vital signs: Vital Signs Temperature 36.6 C 08/18/20 03:36 Pulse 95 H 08/18/20 03:36 Respiratory Rate 16 08/18/20 03:36 Blood Pressure 172/88 H 08/18/20 03:36 Pulse Oximetry 97 08/18/20 03:36 Temperature 36.6 C 08/18/20 03:36 Temperature Source Temporal Artery Scan 08/18/20 03:36 Pulse 95 H 08/18/20 03:36 Respiratory Rate 16 08/18/20 03:36 Blood Pressure 172/88 H 08/18/20 03:36 Pulse Oximetry 97 08/18/20 03:36 Oxygen Delivery Method Room Air 08/18/20 03:36 Oxygen Flow Rate 0 08/18/20 03:36 Pain Level 10 08/18/20 03:36
[2020-08-18] MEDS: predniSONE 20 MG TAB 60 MG PO (03:58)
[2020-08-18] MEDS: Ketorolac 30 MG/ML VIAL IM (03:59)
--- NOTE | 2020-08-18 04:00 | DI.RAD_ITS ---
EXAM: XR LUMBAR SPINE AP, LAT CLINICAL HISTORY: right lower back pain. TECHNIQUE: 2D digital imaging was performed. COMPARISON: No exams were available for comparison FINDINGS: BONES: No fracture or destructive lesion. Vertebral bodies are unremarkable. No facet hypertrophy arya ntified. DISKS: Mild degenerative changes are seen throughout the lumbar spine. ALIGNMENT: There is a mild left convex scoliosis of the thoracolumbar spine. SOFT TISSUE: Vascular calcifications are present. IMPRESSION: 1. No acute abnormality. 2. Mild degenerative changes and scoliosis in the lumbar spine. DATA REPOSITORY: RADIATION DOSE DELIVERED:
--- NOTE | 2020-08-18 04:54 | DI.VRAD_ITS ---
PROCEDURE INFORMATION: Exam: XR Lumbosacral Spine, 2 or 3 Views Exam date and time: 08/18/2020 4:03 AM Age: 64 years old Clinical indication: Patient HX: Low back pain, unable to move due to pain TECHNIQUE: Imaging protocol: XR of the lumbosacral spine, 2 or 3 views. COMPARISON: No relevant prior studies available. FINDINGS: Bones/joints: Mild lumbar degenerative disc disease noted. Mild lumbar scoliosis noted convex to the left . No fracture. No subluxation. Soft tissues: Unremarkable. IMPRESSION: No acute findings Mild lumbar degenerative disc disease and scoliosis Dictated and Authenticated by: Kapil Pierre MD. Ordering:CASSIDY Ashley MD
[2020-08-18] MEDS: diazePAM 5 MG TAB PO (05:13)
== END 2020-08-18 05:15 | disposition home or self-care (01) ==
PROVIDERS: Emergency Provider Student in an Organized Health Care Education/Training Program; PCP Family Medicine
DX: M54.41 Lumbago with sciatica, right side (principal); G89.29 Other chronic pain; I10 Essential (primary) hypertension; E11.9 Type 2 diabetes mellitus without complications; Z79.84 Long term (current) use of oral hypoglycemic drugs; G61.0 Guillain-Barre syndrome
CPT/HCPCS: 96372; 99284; 72100; 99285; J1885; J7512

== ENCOUNTER 2020-11-26 12:05 | Outpatient (REF) | payer OTHER, SELFPAY ==
[2020-11-26 14:42] LABS: Bilirubin Negative (Negative); Blood Trace-intact (Negative); Clarity Cloudy (Clear); Glucose Negative (Negative); Ketones 15 mg/dL (Negative); Leukocyte Esterase Large (Negative); Nitrite Negative (Negative); Urobilinogen 0.2 EU/dL (Up TO 0.2); pH 5.5 (5-8)
[2020-11-26 15:46] LABS: Bacteria Moderate HPF (Negative); C & S Indicated? Yes; Casts Negative LPF (Negative); Crystals Negative HPF (Negative); Epithelial Cells Rare HPF (Negative); Mucus Trace (Negative); RBC 0-2 HPF (0-2); WBC >50 HPF (0-5)
== END 2020-11-26 12:06 | disposition home or self-care (01) ==
LOC: LBN 12:05
PROVIDERS: PCP Family Medicine
DX: R30.0 Dysuria (principal)
CPT/HCPCS: 81003; 81015; 87086

== ENCOUNTER 2020-11-26 22:56 | Emergency (ER) | payer OTHER, SELFPAY ==
--- NOTE | 2020-11-26 00:58 | DI.CT_ITS ---
EXAM: CT ABDOMEN PELVIS W CLINICAL HISTORY: prostatitis, concerned for complications. TECHNIQUE: Imaging Protocol: Axial computed tomography images with coronal and sagittal reformatted images were created and reviewed CONTRAST MATERIAL: Intravenous: Omnipaque 350 Contrast volume: 100 cc Oral: no COMPARISON: CR,XR XR LUMBAR SPINE AP, LAT from 08/18/2020 CR,XR XR LUMBAR SPINE AP, LAT from 08/18/2020 FINDINGS: ABDOMEN: Lung Bases: Normal where visualized. Cardiomegaly. Coronary artery calcifications. Liver: Heterogeneous enhancement particularly inferiorly in the right lobe. No suspicious focal mass .. No measurable mass. Gallbladder and biliary tract: No radiodense calculus or dilation. Pancreas: Normal density, no abnormal calcifications or inflammatory process. Spleen: Normal. Kidneys: Normal size, contour and axis. No radiodense stones or obstructive uropathy. No masses seen. Tiny cysts. Retroaortic left renal vein. Two arteries supply the left kidney. The inferior artery is calcified. Adrenal glands: No masses seen. Abdominal Aorta: Abdominal portion non-dilated. Moderate calcification. There is heavy calcification of the SMA and splenic artery. No aneurysm is seen. PELVIS: Bladder: Castellon catheter within the bladder is mainly decompressed. There is some bladder air. There is marked diffuse bladder wall thickening. Bowel: Diverticulosis of the descending and sigmoid colon. No obstruction or bowel wall thickening. Normal appendix. Peritoneal cavity: No ascites, collection or mesenteric inflammatory response. Bones: Lytic lesion is seen in the right posterior L2 vertebral body which shows erosion of the post erior cortex with mild extension into the central canal. There is loss vertebral height on the right side of approximately 50 percent. This was not visible on the prior plain films. Reproductive organs: Radiotherapy seeds are noted in the prostate. Prostate appears normal in size. No abscess is visible. Lymph nodes: Unremarkable. Impression: Marked bladder wall thickening, consistent with cystitis. Brachytherapy seeds in the prostate. Lytic lesion pathologic fracture of the right-sided the L2 vertebral body. Heterogeneous liver enhancement without focal mass. RADIATION DOSE DELIVERED: 936.07mGy.cm Total DLP DATA REPOSITORY: All CT scans at this facility are submitted to the National Radiology Data Registry (NRDR) Dose Index Registry (DIR) with the [employer] ([employer]). RADIATION OPTIMIZATION: All CT scans at this facility use at least one of these dose optimization te chniques: automated exposure control; mA and/or kV adjustment per patient size (includes targeted exa ms where dose is matched to clinical indication); or iterative reconstruction.
--- NOTE | 2020-11-26 23:00 | ED.GENADUL_ITS ---
Discharge Plan Disposition Patient Disposition: HOME Condition: Good Discharge Details Clinical Impression: Urinary tract infection, Diverticulitis Primary Care Provider: Roddy Patino ED Provider: Dion Hurley Home Meds and New Rx's Prescriptions: New metronidazole [Flagyl] 500 mg tablet 500 mg PO TID 7 Days Qty: 21 RF: 0 Continued (DME) blood-glucose meter [Blood Glucose Monitoring] Kit See Rx Instructions .ROUTE .MEDSUPPLY Qty: 1 RF: 0 (DME) Blood Glucose Test Strip See Rx Instructions .ROUTE .MEDSUPPLY Qty: 200 RF: 3 (DME) lancets 30 gauge misc See Rx Instructions .ROUTE .MEDSUPPLY Qty: 200 RF: 3 metformin 500 mg tablet 1,000 mg PO .q12 Qty: 360 RF: 3 nitrofurantoin monohyd/m-cryst [Macrobid] 100 mg capsule 100 mg PO BID Qty: 14 RF: 0 docusate sodium [DulcoEase] 100 mg capsule 100 mg PO PRN RF: 0 ciprofloxacin HCl 500 mg tablet 500 mg PO BID Qty: 28 RF: 0 cyanocobalamin (vitamin B-12) [Vitamin B-12] 1,000 MCG tablet 1,000 mcg PO DAILY Qty: 30 RF: 0 amlodipine 5 mg tablet 5 mg PO DAILY Qty: 90 RF: 3 Eliquis 5 mg tablet 5 mg PO BID Qty: 60 RF: 11 hydrochlorothiazide 25 mg tablet 25 mg PO DAILY Qty: 90 RF: 4 lisinopril 40 mg tablet 40 mg PO DAILY Qty: 90 RF: 4 pravastatin [Pravachol] 40 mg tablet 40 mg PO DAILY Qty: 90 RF: 4 terazosin 1 mg capsule 1 mg PO DAILY Qty: 90 RF: 3 sotalol 120 mg tablet 120 mg PO DAILY Qty: 90 RF: 3 Discharge Instructions Instructions: Diverticulitis (ED), Urinary Tract Infection in Men (ED) Additional Instructions: At this time you have evidence of a urinary tract infection and mild diverticulitis. Please continue to take the Cipro as directed, but also take the new antibiotic Flagyl as directed. Do not drink any alcohol as this will interact with the Flagyl. Please follow-up closely with Dr. Ward, and leave the Castellon catheter in until reassessed by Dr. Ward or they say you can take it out. If you notice any worsening of your symptoms, or any new symptoms such as vomiting, diarrhea, fever, chills, shortness of breath, chest pain, numbness, weakness, or fainting , please return immediately to the emergency department for reevaluation. Please follow up with your primary care provider as soon as possible for reassessment and reevaluation. As always, it was a pleasure participating in your medical care today. Referrals: Roddy Patino [Primary Care Provider] - Eugene Ward MD [ [facility] STAFF PHYSICIAN] - Discharge Data Discharge Date/Time-TO BE ENTERED AT DEPARTURE: 11/27/20 02:24 Medical Decision Making <RODERICK Lovett - Last Filed: 11/28/20 12:33> Patient is a pleasant 65-year-old gentleman presenting today with chief comp laint of urinary retention and constipation. He reports that his last bowel movement approximately 2 days ago. States he has been attempting times to use the bathroom today but has only passed flatus. Reports that he has not urinated since 10 AM. Reports that he was seen by his primary care and felt that he was diagnosed with prostatitis. Patient was started on ciprofloxacin. He states that he does have a history of prostate cancer which was treated with radiation. He denies any fevers or chills. No nausea or vomiting. Reports diminished appetite. On exam, patient appears nontoxic. Vital signs are stable. Lungs are clear, normal cardiac exam. Abdomen is benign. No CVA tenderness. Rectal exam is concerning for enlarged, tender prostate. Exam is limited secondary to the patient's discomfort. I do not feel any impacted stool. Patient's physical exam and history, I do feel that CT to evaluate for potential complications such as abscess is appropriate. Will obtain baseline labs. Nursing staff to place a Castellon as patient has over 300 cc in his bladder and is unable to urinate. Labs reviewed. Patient's white count 10.98. Hemoglobin stable. Lactate normal. Sodium is low 131. Gap of 13.. Creatinine is elevated at 1.6, patient's baseline is around 1. GFR 43. Urinalysis concerning for elevated specific gravity, moderate blood, small bilirubin, moderate leukocyte esterase, over 50 WBCs. This has been reflexed to culture. At the end of my shift, care transition to Dr. Boyd CT pending. Catheter is in place. Patient is resting comfortably. <Dion Hurley DO - Last Filed: 11/27/20 02:07> Case was signed out to me by my colleague Sana Way, please refer to her documentation, physical exam, assessment and plan. Plan at time of discharge was pending CT scan results. CT scan shows evidence of cystitis, and mild diverticulitis without other significant concerning acute abnormality. Patient doing well currently, pain resolved, Castellon catheter in place, urine draining well. Labs show no evidence of septicemia or concerning systemic infection. White count of only 10.98, lactate normal. Creatinine slightly bumped at 1.6. Patient feels well. Will give Flagyl for home use, we will give his first dose here with a small bottle to go home with as well. We will transition his Castellon to a Castellon with leg bag, recommend close follow-up with Dr. Ward on an outpatient. I did ask if the patient would like me to call anyone, he does not want anyone else to be called at this time. Patient will be discharged, discussed red flags which return. I have extensively reviewed the treatment plan and discharge instructions with the patient. I have addressed all patient concerns at this time. The patient was made aware of what symptoms to monitor for that would warrant a return to the emergency department. Discussed the plan with the patient, they demonstrate verbal understanding and agreement with our assessment and plan at this time. The documentation in this chart was dictated using [employer] dictation software. Please excuse any dictation errors. HPI <RODERICK Lovett - Last Filed: 11/28/20 12:33> General Mode of arrival: ambulatory . Date/Time Provider Initiated Documentation: 11/26/20 22:58 . Limitations to Documentation: no limitations . Information obtained by: patient and RN notes reviewed . History of Present Illness 65 year old M presents to the emergency department with the chief complaint of difficulty urinating, described as severe, Quality is described as aching, and is localized to the abdomen. Patient reports no radiation. Patient started experiencing this hour(s) (last urinated at 1000) and it has been constant. No relieving factors improve symptom(s), No exacerbating factors reported . Patient notes no other symptoms.; denies diaphoresis, fever/chills and nausea/vomiting. Patient did receive the following treatments prior to arrival, other (on ciprofloxacin from PCP) Related Data Home Medications Medication Instructions Recorded Confirmed cyanocobalamin (vitamin B-12) 1,000 mcg PO DAILY #30 tab-cap 02/22/17 11/26/20 [Vitamin B-12] amlodipine 5 mg tablet 5 mg PO DAILY #90 tab-cap 04/24/20 11/26/20 apixaban 5 mg tablet 5 mg PO BID #60 tab 04/24/20 11/26/20 hydrochlorothiazide 25 mg tablet 25 mg PO DAILY #90 tab-cap 04/24/20 11/26/20 lisinopril 40 mg tablet 40 mg PO DAILY #90 tab-cap 04/24/20 11/26/20 pravastatin 40 mg tablet 40 mg PO DAILY #90 tab-cap 04/24/20 11/26/20 terazosin 1 mg capsule 1 mg PO DAILY #90 cap 04/24/20 11/26/20 Blood Glucose Test #200 each NS 05/21/20 11/26/20 blood-glucose meter #1 each 05/21/20 11/26/20 lancets 30 gauge #200 each 05/21/20 11/26/20 metformin 500 mg tablet 1,000 mg PO .q12 #360 tab 05/21/20 11/26/20 sotalol 120 mg tablet 120 mg PO DAILY #90 tab 07/27/20 11/26/20 nitrofurantoin 100 mg PO BID #14 cap 11/20/20 11/26/20 monohydrate/macrocrystals 100 mg capsule ciprofloxacin HCl 500 mg tablet 500 mg PO BID #28 tab 11/25/20 11/26/20 docusate sodium 100 mg capsule 100 mg PO PRN cap 11/25/20 11/26/20 metronidazole [Flagyl] 500 mg PO TID 7 Days #21 tab 11/27/20 Previous Rx's Medication Instructions Recorded amlodipine 5 mg tablet 5 mg PO DAILY #90 tab-cap 04/24/20 apixaban 5 mg tablet 5 mg PO BID #60 tab 04/24/20 hydrochlorothiazide 25 mg tablet 25 mg PO DAILY #90 tab-cap 04/24/20 lisinopril 40 mg tablet 40 mg PO DAILY #90 tab-cap 04/24/20 pravastatin 40 mg tablet 40 mg PO DAILY #90 tab-cap 04/24/20 terazosin 1 mg capsule 1 mg PO DAILY #90 cap 04/24/20 Blood Glucose Test #200 each NS 05/21/20 blood-glucose meter #1 each 05/21/20 lancets 30 gauge #200 each 05/21/20 metformin 500 mg tablet 1,000 mg PO .q12 #360 tab 05/21/20 sotalol 120 mg tablet 120 mg PO DAILY #90 tab 07/27/20 nitrofurantoin 100 mg PO BID #14 cap 11/20/20 monohydrate/macrocrystals 100 mg capsule ciprofloxacin HCl 500 mg tablet 500 mg PO BID #28 tab 11/25/20 metronidazole [Flagyl] 500 mg PO TID 7 Days #21 tab 11/27/20 Allergies Allergy/AdvReac Type Severity Reaction Status Date / Time codeine Allergy Mild RASH Verified 11/26/20 23:13 Tetanus Vaccines and Toxoid AdvReac Severe H/O Verified 11/26/20 23:13 Gu[place] General GALE: 3 Review of Systems <RODERICK Lovett - Last Filed: 11/28/20 12:33> Constitutional Constitutional: Reports as per HPI, Denies chills, Denies fatigue, Denies fever(s) and Denies headache(s) ENT Ears, Nose, Mouth, and Throat: Denies headache(s) Cardiovascular Cardiovascular: Reports as per HPI, Denies chest pain and Denies dyspnea Respiratory Respiratory: Reports as per HPI, Denies cough and Denies dyspnea Gastrointestinal Gastrointestinal: Reports as per HPI Genitourinary Genitourinary: Reports as per HPI, Denies hematuria, Reports oliguria, Reports difficulty urinating, Denies testicular mass, Denies testicular pain, Denies urinary frequency, Denies urinary incontinence and Reports urinary urgency Musculoskeletal Musculoskeletal: Reports as per HPI and Denies back pain Integumentary/Breasts Skin/Breast: Reports as per HPI and Denies rash Neurologic Neurologic: Reports as per HPI and Denies headache(s) Endocrine Endocrine: Denies fatigue PFSH <RODERICK Lovett - Last Filed: 11/28/20 12:33> Medical History Acute prostatitis Anemia BPH (benign prostatic hyperplasia) Diabetes mellitus (03/14/13) Essential hypertension (09/11/13) 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 Primary malignant neoplasm of prostate S/P Implanted seeds-09/24 Urinary tract infection Surgical History Hx of melanoma excision Family History Mother , 78 Cancer Father , 83 Brain cancer Brother Essential hypertension Brother Diabetes Brother Stroke Social History Smoking/Tobacco Use Status: Former Tobacco Use Quit Date: 10/17/72 Second Hand Exposure: Yes Smoking risk assessment performed?: Yes Alcohol Intake: current Alcohol Intake frequency: a few times a week Alcohol type: beer Drug use: Occasionally Substance use type: marijuana Caregiver/Support person: No Housing: house Pets and animals: Yes Pets and animals: dog(s) Sexually active: No Do you think of yourself as: straight/heterosexual What is your relationship status?: never How often do you talk on the phone with friends or family?: three or more times per week How often do you get together with friends or relatives?: decline to answer How often do you attend pentecostal or mu-ism services?: decline to answer Do you belong to any clubs or organized social groups?: no Panel score (0-1 are the most socially isolated patients): 1 What type of physical activity do you participate in: none Sheri/Spiritism: None Special sheri needs: No Seatbelt use: always Helmet use: Yes Drive intox or ride w/intox dedicated truck driver: No Do you feel safe at home: Yes Do you feel safe in your relationship?: Yes Exam <RODERICK Lovett - Last Filed: 11/28/20 12:33> Const General: cooperative, healthy appearing, comfortable, no acute distress and well developed Nutritional Appearance: average body habitus and well nourished Orientation: alert and awake HENMT Head: normal to inspection Mouth: moist mucous membranes Resp Effort & Inspection: normal respiratory effort, able to speak in complete sentences and no respiratory distress Auscultation: clear to auscultation bilaterally, no rales, no rhonchi and no wheezes Cardio Rate: regular rate Rhythm: regular rhythm Heart Sounds: S1 normal and S2 normal GI Inspection: normal to inspection Palpation: soft, no hepatosplenomegaly, not firm, no guarding, no hernias, no masses, no pulsatile masses, tender (lower central abdomen, over bladder) and No ascites Percussion: normal to percussion Auscultation: normal bowel sounds Rectal Exam: visual inspection normal, normal sphincter tone, No fecal impaction and prostate abnormal enlarged and tender Back/Spine/Pelvis Back: no CVA tenderness Skin General skin exam: no rashes or lesions noted Trauma: no lacerations or abrasions Neuro General: patient alert and patient awake Cognition: normal cognition Speech: speech normal Gait: normal gait Psych Appearance: grossly normal and well kempt Mental Status: mental status grossly normal Speech and Movement: speech and movement normal Sign Out <RODERICK Lovett - Last Filed: 11/28/20 12:33> Sign Out Data: Sign Out Comment: Care transitioned to Dr. Hurley with CT imaging pending on prostate. Patient has already taken Ciprofloxacin. Last updated by Sana Huntley PA at 11/27/20 00:22
[2020-11-26 23:07] VITALS: BP 124/73; PULSE 84; RESP 13; TEMP 36.5; O2SAT 98
[2020-11-26] MEDS: Lidocaine 2% Jelly 6 ML SYR (23:20)
[2020-11-26] MEDS: Lactated Ringers 1,000 ML 500 ML IV (23:45)
[2020-11-26 23:48] LABS: Abs Immature Grans 0.07 10^3/uL (0.0-0.06); Absolute Basophil Count 0.03 10^3/uL (0.0-0.2); Absolute Eosinophil Count 0.18 10^3/uL (0.0-0.7); Absolute Lymphocyte Count 2.06 10^3/uL (1.2-3.4); Absolute Monocyte Count 1.11 10^3/uL (0.1-0.8); Absolute Neutrophil Count 7.53 10^3/uL (1.2-6.7); Basophils % 0.3; Eosinophils % 1.6; HCT 39.7 % (40.0-50.0); HGB 13.4 g/dL (13.5-17.5); Immature Grans % 0.6; Lymphocytes % 18.8; MCH 31.2 pg (27.0-33.0); MCHC 33.8 % (32.0-36.0); MCV 92.3 fL (80-95); MPV 9.7 fL (8.0-11.0); Monocytes % 10.1; Neutrophils % 68.6; Nucleated RBC 0 %; Platelet Count 318 10^3/uL (130-400); RDW 11.5 % (11.8-14.1); RDW-SD 39.2 fL; WBC 10.98 10^3/uL (4.4-10.8)
[2020-11-26 23:50] LABS: Bilirubin Small (Negative); Blood Moderate (Negative); Clarity Sl Cloudy (Clear); Glucose Negative (Negative); Ketones Trace mg/dL (Negative); Leukocyte Esterase Moderate (Negative); Nitrite Negative (Negative); Specific Gravity >= 1.030 (1.005-1.025); Urobilinogen 0.2 EU/dL (Up TO 0.2); pH 5.5 (5-8)
[2020-11-26 23:53] LABS: WBC >50 HPF (0-5)
[2020-11-26 23:55] LABS: C & S Indicated? Yes
[2020-11-27 00:15] VITALS: BP 108/66; PULSE 73; RESP 16; O2SAT 98
[2020-11-27 00:15] LABS: ALT 13 U/L (16-63); AST 7 U/L (15-37); Alkaline Phosphatase 82 U/L (46-116); BUN 20 mg/dL (7-18); Bilirubin, Total 0.4 mg/dL (0.2-1.0); CREATININE 1.6 mg/dL (0.70-1.30); Calcium 8.9 mg/dL (8.5-10.1); Chloride 94 mmol/L (98-107); Estimated GFR 43.74 (mL/min/1.73m2); Glucose 150 mg/dL (74-106); Potassium 3.9 mmol/L (3.5-5.1); Sodium 131 mmol/L (136-145); Total Protein 6.6 g/dL (6.4-8.2)
[2020-11-27] MEDS: Normal Saline Flush 10 ML SYR IVP (01:12)
[2020-11-27] MEDS: Normal Saline - Diluent 50 ML VIAL IV (01:12)
[2020-11-27] MEDS: Omnipaque 350 MG/ML 100 ML BTL IJ (01:13)
--- NOTE | 2020-11-27 01:20 | DI.VRAD_ITS ---
PROCEDURE INFORMATION: Exam: CT Abdomen And Pelvis With Contrast Exam date and time: 11/26/2020 11:22 PM Age: 65 years old Clinical indication: Other: Prostatitis; Prior surgery; Surgery date: 6+ months TECHNIQUE: Imaging protocol: Computed tomography of the abdomen and pelvis with contrast. Radiation optimization: All CT scans at this facility use at least one of these dose optimization techniques: automated exposure control; mA and/or kV adjustment per patient size (includes targeted exams where dose is matched to clinical indication); or iterative reconstruction. Contrast material: [id number]; Contrast volume: 100 ml; Contrast route: INTRAVENOUS (IV); COMPARISON: US RENAL ULTRASOUND(P) 06/21/2017 12:26 PM FINDINGS: Liver: Heterogeneous hepatic enhancement may reflect nonspecific hepatocellular disease. Gallbladder and bile ducts: Normal. No calcified stones. No ductal dilation. Pancreas: Normal. No ductal dilation. Spleen: Normal. No splenomegaly. Adrenal glands: Normal. No mass. Kidneys and ureters: Normal. No hydronephrosis. Stomach and bowel: Unremarkable. No obstruction. No mucosal thickening. Appendix: No evidence of appendicitis. Intraperitoneal space: Mild proximal sigmoid diverticulitis without abscess or free air. Vasculature: Unremarkable. No abdominal aortic aneurysm. Lymph nodes: Unremarkable. No enlarged lymph nodes. Urinary bladder: Urinary bladder wall thickening compatible with cystitis. Reproductive: Brachytherapy seeds noted in the prostate gland. Bones/joints: What appears to be a chronic pathologic compression fracture at L2 noted. . Soft tissues: Unremarkable. IMPRESSION: 1. Heterogeneous hepatic enhancement may reflect nonspecific hepatocellular disease. 2. Urinary bladder wall thickening compatible with cystitis. 3. Mild proximal sigmoid diverticulitis without abscess or free air. 4. What appears to be a chronic pathologic compression fracture at L2 noted. . Dictated and Authenticated by: Kapil Pierre MD. Ordering:FLOWER Hood MD
[2020-11-27] MEDS: metroNIDAZOLE 500 MG TAB, 3 TABS/BTL PO (02:07)
--- NOTE | 2020-11-27 02:07 | NUR.NOTE ---
Nursing Note: referral faxed to specialty clinics for urinary retention 11/27/2020 @ 0208 - libl
== END 2020-11-27 02:24 | disposition home or self-care (01) ==
PROVIDERS: Physician Assistant; Emergency Provider Student in an Organized Health Care Education/Training Program; PCP Family Medicine
DX: N39.0 Urinary tract infection, site not specified (principal); K57.32 Diverticulitis of large intestine without perforation or abscess without bleeding; K59.00 Constipation, unspecified
CPT/HCPCS: 36415; 51702; 80053; 96360; 96361; 99285; 74177; 81003; 81015; 83605; 85025; 87086; J3490

== ENCOUNTER → 2020-12-01 08:54 | Outpatient (BNVA) | payer OTHER, SELFPAY | PROVIDERS: PCP Family Medicine; Referring Provider Family Medicine; Visit Provider Nurse Practitioner Gerontology | DX: C61 Malignant neoplasm of prostate (principal); C67.9 Malignant neoplasm of bladder, unspecified; R33.8 Other retention of urine | CPT/HCPCS: 51702; 99215; G2212 ==

== ENCOUNTER → 2020-12-08 08:14 | Outpatient (BNVA) | payer OTHER, SELFPAY | PROVIDERS: PCP Family Medicine; Referring Provider Family Medicine; Visit Provider Nurse Practitioner Gerontology | DX: N40.1 Benign prostatic hyperplasia with lower urinary tract symptoms (principal); R33.9 Retention of urine, unspecified; Z11.59 Encounter for screening for other viral diseases | CPT/HCPCS: 51702; 99214 ==

== ENCOUNTER 2020-12-19 09:57 | Outpatient (CLI) | payer OTHER, SELFPAY ==
--- NOTE | 2020-12-19 10:00 | RT.EKG_ITS ---
APPROVED REPORT Exam: Resting ECG Patient Location: O HR:82 bpm ECG Measurements Heart Rate 82 AXIS [place] [id number] P [id number] QRSd 123 QRS 73 QT 447 T 63 QTc 522 Conclusion Atrial fibrillation...? atrial activity Nonspecific intraventricular conduction delay...QRSd >115mS, not LBBB/RBBB
== END 2020-12-19 09:58 | disposition home or self-care (01) ==
LOC: DI.CARD 10:09
PROVIDERS: PCP Family Medicine; Referring Provider Family Medicine; Visit Provider Internal Medicine Cardiovascular Disease
DX: I48.92 Unspecified atrial flutter (principal); I42.9 Cardiomyopathy, unspecified; Z79.01 Long term (current) use of anticoagulants
CPT/HCPCS: 93010

== ENCOUNTER → 2020-12-19 09:57 | Outpatient (BNVA) | payer OTHER, SELFPAY | PROVIDERS: PCP Family Medicine; Referring Provider Family Medicine; Visit Provider Internal Medicine Cardiovascular Disease | DX: I42.9 Cardiomyopathy, unspecified (principal); I48.92 Unspecified atrial flutter; Z79.01 Long term (current) use of anticoagulants; F10.10 Alcohol abuse, uncomplicated; I10 Essential (primary) hypertension; Z01.810 Encounter for preprocedural cardiovascular examination | CPT/HCPCS: 99214 ==

== ENCOUNTER → 2021-01-05 15:21 | Outpatient (BNVA) | payer OTHER, SELFPAY | PROVIDERS: PCP Family Medicine; Referring Provider Family Medicine; Visit Provider Nurse Practitioner Gerontology | DX: R33.8 Other retention of urine (principal); N40.0 Benign prostatic hyperplasia without lower urinary tract symptoms; Z46.6 Encounter for fitting and adjustment of urinary device | CPT/HCPCS: 51702 ==

== ENCOUNTER 2021-01-09 04:10 | Outpatient (CLI) | payer OTHER, SELFPAY ==
--- NOTE | 2021-01-09 10:35 | DI.US_ITS ---
APPROVED REPORT EXAM: Comprehensive 2D, Doppler, and color-flow Echocardiogram Patient Location: Out-Patient Feather Renovator: Suzanne Quiñones RDCS (AE) Indications: Atrial Flutter Other Information Study Quality: Adequate Conclusion Left Ventricle : The left ventricle is normal size. The left ventricular systolic function is normal. The left ventricular ejection fraction is within the normal range. There is normal left ventricular wall thickness. There is normal LV segmental wall motion. LVEF is 50???55 % with some [id number] va riability.. Right Ventricle : The right ventricle is normal size. The right ventricular systolic function is norm al. The RVSP is 27.1mmHg. Atria : Left atrium is severely dilated. Right atrium is mildly dilated. Mitral Valve : Moderate mitral annular calcification. Mild mitral regurgitation. No evidence of brayan l valve stenosis. Great Vessels : The aortic root is normal in size. The ascending aorta is mildly dilated. Aortic arch is not well visualized. IVC is normal in size and collapses >50% with inspiration. Please see remainder of study for further details. Wall motion Left Ventricle The left ventricle is normal size. The left ventricular systolic function is normal. The left ventric ular ejection fraction is within the normal range. There is normal left ventricular wall thickness. T here is normal LV segmental wall motion. There is no ventricular septal defect visualized. LVEF is 50 -55%. Right Ventricle The right ventricle is normal size. The right ventricular systolic function is normal. The RVSP is 27 .1mmHg. Atria Left atrium is severely dilated. Right atrium is mildly dilated. The interatrial septum is intact wit h no evidence for an atrial septal defect. Aortic Valve The Aortic valve is sclerotic. Aortic valve is trileaflet. There is no aortic valvular stenosis. No a ortic regurgitation is present. Mitral Valve Moderate mitral annular calcification. No evidence of mitral valve stenosis. Mild mitral regurgitatio n. Tricuspid Valve The tricuspid valve is normal in structure. There is no tricuspid valve stenosis. Trace tricuspid reg urgitation. Pulmonic Valve The pulmonary valve is normal in structure. There is no pulmonic valvular stenosis. Trace pulmonic re gurgitation. Great Vessels The aortic root is normal in size. The ascending aorta is mildly dilated. Aortic arch is not well vis ualized. IVC is normal in size and collapses >50% with inspiration. Pericardium There is no pericardial effusion. 2D Dimensions IVSD d PLAX 1.00 cm M: 0.6-1.2 LV Vol A2C d MOD 155.8 mL LVPW d PLAX 1.05 cm M: 0.6 - 1.2 LV Vol A4C d MOD 129.0 mL LVID d PLAX 5.71 cm M: 4.2 - 5.8 LA vol/ BSA A2C s A-L 59.6 mL/m2 LVDs 3.80 cm M: 2.5 - 4.0 LA vol/ BSA A4C s A-L 64.4 mL/m2 Ao Root d 3.20 cm M: 3.1 - 3.7 LA Vol/ BSA Biplane s A-L 62.3 mL/m2 RA Area A4C 17.62 cm2 LA Area A4C s MOD 33.11 cm2 RA Vol/ BSA A4C s A-L 24.5 mL/m2 LA Area A2C s MOD 31.67 cm2 Ao Asc Diam d 3.71 cm M: 2.6 - 3.4 LV EF A4C MOD 57.1 % LV EF Teichholz 60.9 % LV EF A2C MOD 56.2 % LVEF (Vasquez's) 57.81 % M: 52 - 72 LV EF Biplane MOD 57.8 % LV Volume 112.52 mL M: 62 - 150 SV 86.33 mL LV Volume Index 57.11 mL/m2 M: 34 - 74 SV Index 43.76 mL/m2 LV Vol Biplane MOD 149.3 mL FS 33.00 % M-Mode TAPSE 1.59 cm (M/F) >1.7 LV Diastology MV E' lateral 0.119 (>0.1 m/s) MV E Vmax 1.47 (0.4-1.3 m/s) LV E/e LAT 12.25 (<14) MV E/E' lateral 12.30 Aortic Valve LVOT Area 3.57 cm2 AoV Area Vmax 2.64 cm2 LVOT Vmax 1.07 m/s AoV Area/ BSA (Vmax) 1.34 cm2/m2 LVOT Mean Asher. 0.74 m/s PATRICIA Mean Asher. 2.33 cm2 LVOT Peak Grad 4.6 mmHg PATRICIA Mean Asher. Index 1.18 cm2/m2 LVOT Mean Grad 2.5 mmHg LVOT VTI 0.205 m LVOT Diam s 2.10 cm AoV Vmax 1.45 m/s Velocity Ratio 0.73 AoV Mean Asher. 1.13 m/s AoV Peak Grad 8.4 mmHg LVOT SV 73.19 mL AoV Mean Grad 5.5 mmHg AoV VTI 0.276 m AoV Area VTI 2.65 cm2 AoV Area/ BSA (VTI) 1.34 cm/m2 Mitral Valve MV DT 180 (160-240 msec) MV PHT 52 msec MV Area PHT 4.20 cm2 MV VTI 0.308 m MV VTI Annulus 0.320 m MV Area VTI 2.47 (4.0-6.0 cm2) Pulmonary Valve PV Vmax 1.17 (0.5-1.5 m/s) RVOT Peak Gr. 2.12 mmHg PV Peak Grad 5.4 mmHg RVOT Mean Gr. 1.00 mmHg PV Mean Grad 2.9 mmHg RVOT VTI 0.121 m PV VTI 0.200 m RVOT Vmax 0.73 m/s Tricuspid Valve TR Peak Grad 24.1 mmHg TR Vmax 2.46 m/s RA Pressure 3.00 mmHg RVSP (TR) 27.1 mmHg
== END 2021-01-09 04:30 ==
PROVIDERS: PCP Family Medicine; Visit Provider Internal Medicine Cardiovascular Disease
DX: I48.92 Unspecified atrial flutter (principal)
CPT/HCPCS: 93306

== ENCOUNTER 2021-01-23 02:59 | Outpatient (CLI) | payer OTHER, SELFPAY ==
[2021-01-23 11:40] LABS: Source Nasal/Nares
[2021-01-24 14:56] LABS: COVID-19 PCR Negative (Negative)
== END 2021-01-23 03:00 | disposition home or self-care (01) ==
LOC: LBO 02:59
PROVIDERS: Internal Medicine Cardiovascular Disease; PCP Family Medicine; Visit Provider Urology
DX: Z20.822 Contact with and (suspected) exposure to COVID-19 (principal); Z01.818 Encounter for other preprocedural examination
CPT/HCPCS: 87635

== ENCOUNTER 2021-01-26 07:25 | Day surgery (SDC) | payer OTHER, SELFPAY ==
--- NOTE | 2021-01-23 09:05 | NUR.NOTE ---
01/23/21 0910 Office notified that patient was not told when to stop his Eliquis prior to his surgical procedure. Mara from cardiology will ask Dr. Weaver when the patient is to stop the Eliquis. Nursing Note:
[2021-01-26 08:02] VITALS: BP 118/62; PULSE 84; RESP 18; TEMP 36.5; O2SAT 98
[2021-01-26] MEDS: Lactated Ringers 1,000 ML 80 ML IV (08:20)
--- NOTE | 2021-01-26 08:26 | HPE_ITS ---
Date of service: 01/26/21 Time of Service: 08:26 Assessment and Plan Assessment and plan (1) Primary malignant neoplasm of prostate: Status: Inactive (2) Urethral stricture: Status: Acute Assessment and plan: For cystoscopy to evaluate extent of urethral stricture disease History of Present Illness History of Present Illness Chief Complaint: Ureteral stricture Narrative: This is a 65 year old man who has a history of adenocarcinoma of the prostate treated with brachytherapy over 10 years ago. He developed urinary retention and we were only able to pass a 12 Georgian catheter due to urethral strictures. It is unclear as to the extent of the stricture disease. He presents now for cystoscopy and urethral dilation. At the completion of the procedure, I expect that we will discharge this patient with a larger caliber urethral catheter and plan a voiding trial as an outpatient. Review of Systems Narrative: No fevers or chills No vision change or dysphasia Hx diabetes. No thyroid dysfunction No shortness of breath, cough or hemoptysis Hx atrial fibrillation, cardiomyopathy. 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 No seizures, strokes Bleeds/bruises easily due to Eliquis. 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 Primary malignant neoplasm of prostate S/P Implanted seeds-09/24 Urethral stricture Urethral stricture Urinary tract infection Surgical History Hx of colonoscopy Hx of melanoma excision Family History Mother , 78 Cancer Father , 83 Brain cancer Brother Essential hypertension Brother Diabetes Brother Stroke Social History Smoking/Tobacco Use Status: Former Tobacco Use Quit Date: 10/17/72 Second Hand Exposure: Yes Smoking risk assessment performed?: Yes Alcohol Intake: current Alcohol Intake frequency: a few times a week Alcohol type: beer Drug use: Occasionally Substance use type: marijuana Details: alcohol: t-5, couple beers. Marijuana: many months Caregiver/Support person: No Housing: house Pets and animals: Yes Pets and animals: dog(s) Sexually active: No Do you think of yourself as: straight/heterosexual What is your relationship status?: never How often do you talk on the phone with friends or family?: three or more times per week How often do you get together with friends or relatives?: decline to answer How often do you attend rastafarian or zoroastrian services?: decline to answer Do you belong to any clubs or organized social groups?: no Panel score (0-1 are the most socially isolated patients): 1 What type of physical activity do you participate in: none Sheri/Mandaeism: None Special sheri needs: No Seatbelt use: always Helmet use: Yes Drive intox or ride w/intox pickup driver: No Do you feel safe at home: Yes Do you feel safe in your relationship?: Yes Meds Home Medications and Allergies Allergies Allergy/AdvReac Type Severity Reaction Status Date / Time codeine Allergy Mild RASH Verified 12/22/20 15:06 Tetanus Vaccines and Toxoid AdvReac Severe H/O Verified 01/26/21 07:38 Guillian-[place] Home Medications Medication Instructions Recorded Confirmed Type cyanocobalamin (vitamin B-12) 1,000 mcg PO DAILY #30 tab-cap 02/22/17 01/26/21 History [Vitamin B-12] amlodipine 5 mg tablet 5 mg PO DAILY #90 tab-cap 04/24/20 01/26/21 Rx apixaban 5 mg tablet 5 mg PO BID #60 tab 04/24/20 01/26/21 Rx hydrochlorothiazide 25 mg tablet 25 mg PO DAILY #90 tab-cap 04/24/20 01/26/21 Rx lisinopril 40 mg tablet 40 mg PO DAILY #90 tab-cap 04/24/20 01/26/21 Rx pravastatin 40 mg tablet 40 mg PO DAILY #90 tab-cap 04/24/20 01/26/21 Rx Blood Glucose Test #200 each NS 05/21/20 01/26/21 Rx blood-glucose meter #1 each 05/21/20 01/26/21 Rx lancets 30 gauge #200 each 05/21/20 01/26/21 Rx metformin 500 mg tablet 1,000 mg PO .q12 #360 tab 05/21/20 01/26/21 Rx docusate sodium 100 mg capsule 100 mg PO PRN cap 11/25/20 01/26/21 History terazosin 1 mg capsule 2 mg PO DAILY #180 cap 12/08/20 01/26/21 Rx metoprolol succinate 50 mg 50 mg PO DAILY #90 tab 12/19/20 01/26/21 Rx tablet,extended release 24 hr Exam Const General: cooperative Neck Neck: supple Resp Effort & Inspection: normal respiratory effort Auscultation: clear to auscultation bilaterally Cardio Rate: other Rhythm: abnormal rhythm GI Palpation: soft and no masses Neuro General: patient alert, patient awake and patient oriented x3 Results Last Vital Signs Temp 36.5 C 01/26/21 08:02 Pulse 84 01/26/21 08:02 Resp 18 01/26/21 08:02 BP 118/62 01/26/21 08:02 Pulse Ox 98 01/26/21 08:02 COVID-19 Screening Have you, or household traveled for leisure in last 14 days?: No Had IN PERSON contact w/suspected or confirmed C-19 person: No
[2021-01-26] MEDS: ceFAZolin 1 GM/50 ML BAG IVPB (09:08)
[2021-01-26] MEDS: Lidocaine 2% Jelly 6 ML SYR (09:21)
--- NOTE | 2021-01-26 09:30 | W.PM.DSUDISC ---
Discharge Plan Disposition Patient Disposition: HOME Condition: Stable Discharge Details Reason For Visit: urethral stricture Attending Provider: Eugene Ward Primary Care Provider: Roddy Patino Home Meds and New Rx's Prescriptions: No Action (DME) blood-glucose meter [Blood Glucose Monitoring] Kit See Rx Instructions .ROUTE .MEDSUPPLY Qty: 1 RF: 0 (DME) Blood Glucose Test Strip See Rx Instructions .ROUTE .MEDSUPPLY Qty: 200 RF: 3 (DME) lancets 30 gauge misc See Rx Instructions .ROUTE .MEDSUPPLY Qty: 200 RF: 3 metformin 500 mg tablet 1,000 mg PO .q12 Qty: 360 RF: 3 docusate sodium [DulcoEase] 100 mg capsule 100 mg PO PRN RF: 0 terazosin 1 mg capsule 2 mg PO DAILY Qty: 180 RF: 3 metoprolol succinate 50 mg tablet extended release 24 hr 50 mg PO DAILY Qty: 90 RF: 3 cyanocobalamin (vitamin B-12) [Vitamin B-12] 1,000 MCG tablet 1,000 mcg PO DAILY Qty: 30 RF: 0 amlodipine 5 mg tablet 5 mg PO DAILY Qty: 90 RF: 3 Eliquis 5 mg tablet 5 mg PO BID Qty: 60 RF: 11 hydrochlorothiazide 25 mg tablet 25 mg PO DAILY Qty: 90 RF: 4 lisinopril 40 mg tablet 40 mg PO DAILY Qty: 90 RF: 4 pravastatin [Pravachol] 40 mg tablet 40 mg PO DAILY Qty: 90 RF: 4 Discharge Instructions Additional Instructions: Castellon to legbag OK to restart Eliquis 01/27 Followup voiding trial in @ 1 week Activity:: Activity as Tolerated Shower/Bathe:: 24 hours Diet:: As Tolerated Discharge Orders Discharge Orders: Discharge Order (Routine); Ordered 01/26/21 Ordered By: Eugene Ward DS: Diagnosis Discharge Diagnosis (1) Primary malignant neoplasm of prostate: Status: Inactive (2) Urethral stricture: Status: Acute
--- NOTE | 2021-01-26 09:34 | W.PM.OP ---
Date of service: 01/26/21 Time of Service: 09:35 Operative Note Operative Note DATE OF PROCEDURE: 01/26/21 PRE-OP DIAGNOSIS: Urinary retention due to urethral stricture disease POST-OP DIAGNOSIS: same PROCEDURE: Cystoscopy with urethral dilation SURGEON: Eugene Ward ANESTHESIA TYPE: General:No Airway Refer to Anesthesia Record ESTIMATED BLOOD LOSS: 10 PATHOLOGY: none sent COMPLICATIONS: None Patient was transported to: same day Patient's condition: stable Implants: 18 Mauritian Councill tipped catheter with 10 cc in balloon Indications: 65-year-old gentleman who has a history of prostate cancer treated with brachytherapy in 2008. He recently developed urinary retention and we were only able to pass a 12 Mauritian Castellon catheter due to what we suspect is a urethral stricture. He comes in to have a cystoscopy and possible urethral dilation. Findings: Urethral stricture just distal to the verumontanum Procedure Description: Brought to the operating room on 01/26/2021. After successful induction of general anesthesia, he was placed in the dorsal lithotomy position. He was given a dose of preoperative IV antibiotics. His indwelling urethral catheter was removed. His genitalia was prepped and draped. 2% Xylocaine jelly was instilled into the urethra to act as a local anesthetic. A 17 Mauritian cystoscope was passed through the urethra. The pendulous and bulbous urethra is both appeared normal with no strictures. At the penoscrotal junction, distal to the verumontanum, there was a narrowing of the urethra. I was not able to pass the scope through this area, but I did pass a Glidewire through the urethral narrowing. The cystoscope was withdrawn. I passed dilators over the guidewire and dilated the strictured area up to a size 22 Mauritian. I then reintroduced the cystoscope and was able to maneuver the scope through the strictured area, through the remainder of the prostatic urethra and into the bladder. No additional strictures were identified in the prostatic urethra. No tumors or stones were seen within the bladder. The cystoscope was withdrawn. An 18 Mauritian [place] tip catheter was then advanced over the guidewire. Once the catheter was passed into the bladder, the wire was removed. The catheter balloon was inflated with 10 cc of sterile water. The catheter was hooked to gravity drainage. We will plan on a voiding trial in a week or so. He tolerated this procedure well. He was returned to the day surgery unit in stable condition.
[2021-01-26 09:35] VITALS: BP 112/71; PULSE 80; RESP 13; TEMP 36.6; O2SAT 100
[2021-01-26 09:40] VITALS: BP 92/56; PULSE 77; RESP 13; TEMP 36.6; O2SAT 100
[2021-01-26 09:45] VITALS: BP 101/60; PULSE 79; RESP 13; TEMP 36.6; O2SAT 100
[2021-01-26 10:27] VITALS: BP 123/70; PULSE 84; RESP 16; TEMP 36.2; O2SAT 95
[2021-01-26] MEDS: Ketorolac 15 MG/ML VIAL IVP (10:46)
== END 2021-01-26 12:05 | disposition home or self-care (01) ==
PROVIDERS: PCP Family Medicine; Visit Provider Urology
PROC: 0T7D8ZZ Dilation of Urethra, Via Natural or Artificial Opening Endoscopic (ICD-10-PCS; CPT 52281; principal; 2021-01-26 08:30)
DX: N35.919 Unspecified urethral stricture, male, unspecified site (principal); R33.8 Other retention of urine; D64.9 Anemia, unspecified; E78.5 Hyperlipidemia, unspecified; I25.2 Old myocardial infarction; Z85.46 Personal history of malignant neoplasm of prostate
CPT/HCPCS: 52281; NC; J0690; J1885; J2001; J2405; J2704

== ENCOUNTER → 2021-02-04 07:58 | Outpatient (BNVA) | payer OTHER, SELFPAY | PROVIDERS: PCP Family Medicine; Referring Provider Family Medicine; Visit Provider Nurse Practitioner Gerontology | DX: R33.8 Other retention of urine (principal); N40.0 Benign prostatic hyperplasia without lower urinary tract symptoms | CPT/HCPCS: 81003; 99213 ==

== ENCOUNTER 2021-02-04 16:17 | Outpatient (REF) | payer MEDICARE, OTHER, SELFPAY ==
[2021-02-04 17:50] LABS: Bilirubin Negative (Negative); Blood Large (Negative); Clarity Sl Cloudy (Clear); Glucose 100 mg/dL (Negative); Ketones Negative (Negative); Leukocyte Esterase Trace (Negative); Nitrite Negative (Negative); Specific Gravity 1.015 (1.005-1.025); Urobilinogen 0.2 EU/dL (Up TO 0.2)
[2021-02-04 18:00] LABS: Epithelial Cells Few HPF (Negative); Other Cells Negative (Negative); RBC >50 HPF (0-2); WBC 20-50 HPF (0-5)
[2021-02-04 18:01] LABS: Bacteria Moderate HPF (Negative); C & S Indicated? C&S Done As Ordered; Casts Negative LPF (Negative); Crystals Negative HPF (Negative); Mucus Moderate (Negative)
== END 2021-02-04 16:18 | disposition home or self-care (01) ==
LOC: LBN 16:17
PROVIDERS: PCP Family Medicine; Visit Provider Nurse Practitioner Gerontology
DX: N39.0 Urinary tract infection, site not specified (principal); R33.9 Retention of urine, unspecified
CPT/HCPCS: 87077; 81003; 81015; 87086; 87186

== ENCOUNTER → 2021-02-11 08:00 | Outpatient (BNVA) | payer OTHER, SELFPAY | PROVIDERS: PCP Family Medicine; Referring Provider Family Medicine; Visit Provider Nurse Practitioner Gerontology | DX: N40.0 Benign prostatic hyperplasia without lower urinary tract symptoms (principal); R33.9 Retention of urine, unspecified; Z98.890 Other specified postprocedural states; Z96.0 Presence of urogenital implants | CPT/HCPCS: 99213 ==

== ENCOUNTER → 2021-02-24 08:58 | Outpatient (BNVA) | payer OTHER, SELFPAY | PROVIDERS: PCP Family Medicine; Referring Provider Family Medicine; Visit Provider Nurse Practitioner Gerontology | DX: R33.8 Other retention of urine (principal) | CPT/HCPCS: 51702; 81003; 99215 ==

== ENCOUNTER 2021-02-24 17:39 | Outpatient (REF) | payer OTHER, SELFPAY | END 2021-02-24 17:40 | disposition home or self-care (01) | LOC: LBN 17:39 | PROVIDERS: PCP Family Medicine | DX: R33.9 Retention of urine, unspecified (principal) | CPT/HCPCS: 87077; 87086; 87186 ==

== ENCOUNTER → 2021-03-09 08:07 | Outpatient (BNVA) | payer OTHER, SELFPAY | PROVIDERS: Referring Provider Family Medicine; Visit Provider Nurse Practitioner Gerontology | DX: N40.0 Benign prostatic hyperplasia without lower urinary tract symptoms; Z85.46 Personal history of malignant neoplasm of prostate; R33.8 Other retention of urine; N35.919 Unspecified urethral stricture, male, unspecified site; B96.1 Klebsiella pneumoniae [K. pneumoniae] as the cause of diseases classified elsewhere | CPT/HCPCS: 99213 ==

== ENCOUNTER → 2021-03-17 09:16 | Outpatient (BNVA) | payer OTHER, SELFPAY | PROVIDERS: Visit Provider Nurse Practitioner Gerontology | DX: R33.9 Retention of urine, unspecified (principal); N40.0 Benign prostatic hyperplasia without lower urinary tract symptoms; Z85.46 Personal history of malignant neoplasm of prostate; Z79.899 Other long term (current) drug therapy | CPT/HCPCS: 99213 ==

== ENCOUNTER → 2021-03-20 10:25 | Outpatient (BNVA) | payer OTHER, SELFPAY | PROVIDERS: Referring Provider Family Medicine; Visit Provider Internal Medicine Cardiovascular Disease | DX: I48.92 Unspecified atrial flutter (principal); F10.10 Alcohol abuse, uncomplicated; Z79.01 Long term (current) use of anticoagulants; E11.9 Type 2 diabetes mellitus without complications; I48.91 Unspecified atrial fibrillation; I10 Essential (primary) hypertension | CPT/HCPCS: 99214 ==

== ENCOUNTER → 2021-04-07 09:57 | Outpatient (BNVA) | payer OTHER, SELFPAY | PROVIDERS: Referring Provider Family Medicine; Visit Provider Nurse Practitioner Adult Health | DX: G61.0 Guillain-Barre syndrome (principal); E11.9 Type 2 diabetes mellitus without complications; Z71.89 Other specified counseling | CPT/HCPCS: 99213 ==

== ENCOUNTER → 2021-04-22 08:50 | Outpatient (BNVA) | payer OTHER, SELFPAY | PROVIDERS: Visit Provider Nurse Practitioner Gerontology | DX: R33.9 Retention of urine, unspecified (principal); N40.0 Benign prostatic hyperplasia without lower urinary tract symptoms; Z85.46 Personal history of malignant neoplasm of prostate; N52.9 Male erectile dysfunction, unspecified; Z79.899 Other long term (current) drug therapy | CPT/HCPCS: 99213 ==

== ENCOUNTER → 2021-07-21 09:01 | Outpatient (BNVA) | payer OTHER, SELFPAY | PROVIDERS: Visit Provider Nurse Practitioner Gerontology | DX: R33.9 Retention of urine, unspecified (principal); N40.0 Benign prostatic hyperplasia without lower urinary tract symptoms; Z85.46 Personal history of malignant neoplasm of prostate; Z79.899 Other long term (current) drug therapy; N52.9 Male erectile dysfunction, unspecified | CPT/HCPCS: 99214 ==

== ENCOUNTER 2021-07-21 16:13 | Outpatient (REF) | payer OTHER, SELFPAY ==
[2021-07-21 22:23] LABS: PSA, Diagnostic <0.1 ng/mL (0.0-4.5)
== END 2021-07-21 16:14 | disposition home or self-care (01) ==
LOC: LBN 16:13
PROVIDERS: Visit Provider Nurse Practitioner Gerontology
DX: C61 Malignant neoplasm of prostate (principal)
CPT/HCPCS: 84153

== ENCOUNTER → 2021-09-18 11:00 | Outpatient (BNVA) | payer MEDICARE, SELFPAY | PROVIDERS: Visit Provider Internal Medicine Cardiovascular Disease | DX: I42.9 Cardiomyopathy, unspecified (principal); I48.92 Unspecified atrial flutter; Z79.01 Long term (current) use of anticoagulants | CPT/HCPCS: 99213 ==

== ENCOUNTER 2022-03-08 13:23 | Outpatient (REF) | payer MEDICARE, SELFPAY ==
[2022-03-08 16:05] LABS: Anion Gap 12.3 mmol/L (3-11); BUN 18 mg/dL (7-18); CO2 21.7 mmol/L (21.0-32.0); CREATININE 1.2 mg/dL (0.70-1.30); Calcium 8.5 mg/dL (8.5-10.1); Chloride 102 mmol/L (98-107); Glucose 157 mg/dL (74-106); Potassium 5.4 mmol/L (3.5-5.1); Sodium 136 mmol/L (136-145)
== END 2022-03-08 13:24 | disposition home or self-care (01) ==
LOC: LBN 13:23
DX: I10 Essential (primary) hypertension (principal); E11.9 Type 2 diabetes mellitus without complications
CPT/HCPCS: 80048

== ENCOUNTER → 2022-03-19 10:54 | Outpatient (BNVA) | payer MEDICARE, SELFPAY | PROVIDERS: Visit Provider Internal Medicine Cardiovascular Disease | DX: I48.91 Unspecified atrial fibrillation (principal); I10 Essential (primary) hypertension; I42.9 Cardiomyopathy, unspecified | CPT/HCPCS: 99213 ==

== ENCOUNTER 2022-03-31 18:36 | Observation (INO) | payer MEDICARE, SELFPAY ==
[2022-03-31] VITALS (21 sets, daily range): BP systolic 106–140; BP diastolic 61–70; PULSE 82–128; RESP 16–27; TEMP 37.4–39.4; O2SAT 94–98
--- NOTE | 2022-03-31 18:38 | W.ED.GENAD ---
Discharge Plan Disposition Patient Disposition: [facility] Condition: Stable Discharge Details Clinical Impression: Pneumonia, Hypoxia, Fever, On supplemental oxygen by nasal cannula Admit Date/Time: 03/31/22 20:35 Admit Provider: Phillip Jackson Attending Provider: Phillip Jackson Primary Care Provider: Julia Delgado ED Provider: Cony Verduzco Discharge Data Discharge Date/Time-TO BE ENTERED AT DEPARTURE: 04/01/22 15:46 Medical Decision Making 1850 -- 66-year-old male with a history of obesity, diabetes, cardiomyopathy, hypertension, hyperlipidemia, atrial fibrillation on Eliquis who presents for cough, chest congestion and shortness of breath for the past week. Heart rate 120s and appears sinus on the monitor. Oral temp 103.1. Oxygen saturation 80s on room air on arrival and increased to 97% on 5 L, will continue to titrate to keep O2 greater than 90%. Patient has diffuse wheezing and rhonchi throughout. Differential diagnosis includes COVID, bronchitis, pneumonia. History and presentation does not appear consistent with ACS, CHF or PE. Will obtain screening labs, portable chest xray, Fluvid and give DuoNeb, albuterol neb, IV Solu-Medrol, fluids and IV Tylenol and reassess. 1999 --labs and imaging reviewed. White blood cell count 14. Normal electrolytes. Magnesium 1.6, will replete. Troponin negative. Fluvid negative. Chest x-ray notes right lower lobe pneumonia. Patient reassessed and he feels better. Oxygen saturation low to mid 90s on 2 L nasal cannula. Discussed with patient that it is recommended he stay in the hospital for observation overnight with nasal cannula oxygen to titrate as needed, neb treatments, IV steroids and IV antibiotics. Case discussed with Dr. Quan who accepts patient for admission. Medical Records Medical records reviewed: Yes I reviewed the patient's medical records. Imaging Data Radiologic Study: Radiologist's impression: XR Chest Exam date and time: 03/31/2022 7:33 PM Age: 66 years old Clinical indication: Other: Fever, cough R/O acute disease TECHNIQUE: Imaging protocol: Radiologic exam of the chest. Views: 1 view. COMPARISON: XR PORTABLE CHEST AP 03/29/2020 12:36 PM FINDINGS: Tubes, catheters and devices: Monitoring wires noted. Lungs: Moderate opacity noted at the right lung base. Left lung is clear. Pulmonary vessels are not congested. Pleural spaces: Unremarkable. No pleural effusion. No pneumothorax. Heart/Mediastinum: No cardiomegaly. Right heart border is obscured. Bones/joints: Chronic deformity noted in the right mid clavicle. IMPRESSION: Right middle/lower lobe consolidation concerning for pneumonia. Follow-up to radiographic resolution recommended. Lab Data Lab results reviewed: Yes I reviewed the patient's lab results. Labs: Laboratory Tests Range/Units 03/31/22 03/31/22 03/31/22 19:10 19:10 19:10 WBC (4.4-10.8) 10^3/uL 14.04 H RBC (4.36-5.78) 10^6/uL 4.71 Hgb (13.5-17.5) g/dL 14.4 Hct (40.0-50.0) % 43.4 MCV (80-95) fL 92 MCH (27.0-33.0) pg 30.6 MCHC (32.0-36.0) % 33.2 RDW (11.8-14.1) % 13.1 Plt Count (130-400) 10^3/uL 248 MPV (8.0-11.0) fL 10.0 Immature Gran % 0.6 Neutrophils % 87.8 Lymphocytes % 5.1 Monocytes % 6.3 Eosinophils % 0.0 Basophils % 0.2 Nucleated RBC % (0.0-0.3) % 0.0 Absolute Neutrophils (1.2-6.7) 10^3/uL 12.33 H Absolute Lymphocytes (1.2-3.4) 10^3/uL 0.72 L Absolute Monocytes (0.1-0.8) 10^3/uL 0.88 H Absolute Eosinophils (0.0-0.7) 10^3/uL 0.00 Absolute Basophils (0.0-0.2) 10^3/uL 0.03 Sodium (136-145) mmol/L 138 Potassium (3.5-5.1) mmol/L 4.6 Chloride (98-107) mmol/L 103 Carbon Dioxide (21.0-32.0) mmol/L 24.3 Anion Gap (3-11) mmol/L 10.7 BUN (7-18) mg/dL 19 H Creatinine (0.70-1.30) mg/dL 1.3 Estimated GFR/1.73 m2 (mL/min/1.73m2) 55.40 Glucose (74-106) mg/dL 215 H Calcium (8.5-10.1) mg/dL 9.1 Magnesium (1.8-2.4) mg/dL 1.6 L Total Bilirubin (0.2-1.0) mg/dL 0.7 AST (15-37) U/L 13 L ALT (16-63) U/L 28 Alkaline Phosphatase (46-116) U/L 77 Troponin I (<or=60) ng/L < 50 Total Protein (6.4-8.2) g/dL 7.3 Albumin (3.4-5.0) g/dL 3.6 COVID-19 Source Nasopharynx SARS-CoV-2 (PCR) (Negative) Negative Influenza Type A (PCR) (Negative) Negative Influenza Type B (PCR) (Negative) Negative RSV (PCR) (Negative) Negative HPI General Mode of arrival: ambulatory. Date/Time Provider Initiated Documentation: 03/31/22 18:38. Limitations to Documentation: no limitations. Information obtained by: patient. HPI Narrative: Patient is a 66-year-old male with a history of obesity, atrial fibrillation on Eliquis, cardiomyopathy, hypertension, hyperlipidemia, diabetes presents for shortness of breath, cough and chest congestion for the past week. Patient states he was unaware of having a fever. He states he received his second COVID booster over the weekend and denies any known recent exposure to coronavirus. He denies any anterior chest pain. Related Data Home Medications Medication Instructions Recorded Confirmed cyanocobalamin (vitamin B-12) 1,000 mcg PO DAILY #30 tab-caps 02/22/17 03/31/22 1,000 mcg tablet (Vitamin B-12) blood-glucose meter (Blood Glucose #1 ea 05/21/20 03/31/22 Monitoring kit) tadalafil 5 mg tablet (Cialis) 5 mg PO DAILY PRN sexual activity 04/22/21 03/31/22 #10 tabs terazosin 1 mg capsule 2 mg PO BID #360 caps 07/21/21 03/31/22 amlodipine 5 mg tablet 5 mg PO DAILY #90 tab-caps 12/31/21 03/31/22 apixaban 5 mg tablet (Eliquis) See Rx Instructions .Route 01/05/22 03/31/22 .COMPLEX #180 tabs Blood Glucose Test (blood sugar #200 ea 01/27/22 03/31/22 diagnostic) lancets 30 gauge #200 ea 01/27/22 03/31/22 metoprolol succinate 50 mg 50 mg PO DAILY #90 tabs 03/08/22 03/31/22 tablet,extended release 24 hr polyethylene glycol 3350 17 17 g PO DAILY #510 grams 03/08/22 03/31/22 gram/dose oral powder (Miralax) metformin 500 mg tablet 1,000 mg PO .q12 #360 tabs 03/12/22 03/31/22 hydrochlorothiazide 25 mg tablet 25 mg PO DAILY #90 tab-caps 03/29/22 03/31/22 lisinopril 40 mg tablet 40 mg PO DAILY #90 tab-caps 03/29/22 03/31/22 pravastatin 40 mg tablet 40 mg PO DAILY #90 tab-caps 03/29/22 03/31/22 levofloxacin 750 mg tablet 750 mg PO QAM #9 tabs 04/01/22 Previous Rx's Medication Instructions Recorded blood-glucose meter (Blood Glucose #1 ea 05/21/20 Monitoring kit) tadalafil 5 mg tablet (Cialis) 5 mg PO DAILY PRN sexual activity 04/22/21 #10 tabs terazosin 1 mg capsule 2 mg PO BID #360 caps 07/21/21 amlodipine 5 mg tablet 5 mg PO DAILY #90 tab-caps 12/31/21 apixaban 5 mg tablet (Eliquis) See Rx Instructions .Route 01/05/22 .COMPLEX #180 tabs Blood Glucose Test (blood sugar #200 ea 01/27/22 diagnostic) lancets 30 gauge #200 ea 01/27/22 metoprolol succinate 50 mg 50 mg PO DAILY #90 tabs 03/08/22 tablet,extended release 24 hr polyethylene glycol 3350 17 17 g PO DAILY #510 grams 03/08/22 gram/dose oral powder (Miralax) metformin 500 mg tablet 1,000 mg PO .q12 #360 tabs 03/12/22 hydrochlorothiazide 25 mg tablet 25 mg PO DAILY #90 tab-caps 03/29/22 lisinopril 40 mg tablet 40 mg PO DAILY #90 tab-caps 03/29/22 pravastatin 40 mg tablet 40 mg PO DAILY #90 tab-caps 03/29/22 levofloxacin 750 mg tablet 750 mg PO QAM #9 tabs 04/01/22 Allergies Allergy/AdvReac Type Severity Reaction Status Date / Time codeine Allergy Mild RASH Verified 03/31/22 20:41 Tetanus Vaccines and Toxoid AdvReac Severe H/O Verified 03/31/22 20:41 [place] General Stated Complaint: SOB GALE: 3 Review of Systems All systems reviewed & are unremarkable except as noted in HPI and below Constitutional Constitutional: Denies chills, Denies excessive sweating, Denies fatigue, Denies fever(s), Denies weakness and Denies weight loss Eyes Eyes: Reports system reviewed and no additional complaints, except as documented and Denies blurry vision ENT Ears, Nose, Mouth, and Throat: Denies vertigo, Denies dizziness, Denies otalgia, Denies nasal congestion, Denies sore throat and Denies throat swelling Cardiovascular Cardiovascular: Denies chest pain, Denies syncope, Denies rapid heart rate and Reports dyspnea Respiratory Respiratory: Reports chest congestion, Reports cough, Denies pain on inspiration and Reports dyspnea Gastrointestinal Gastrointestinal: Denies abdominal pain, Denies diarrhea and Denies vomiting Genitourinary Genitourinary: Denies hematuria, Denies dysuria and Denies flank pain Musculoskeletal Musculoskeletal: Denies back pain and Denies joint swelling Integumentary/Breasts Skin/Breast: Denies lesions and Denies rash Neurologic Neurologic: Denies behavioral changes, Denies confusion, Denies vertigo, Denies dizziness, Denies syncope, Denies localized weakness and Denies weakness Psychiatric Psychiatric: Denies behavioral changes, Denies confusion and Denies depression Endocrine Endocrine: Denies excessive sweating and Denies fatigue Hematologic/Lymphatic Hematologic/Lymphatic: Denies easy bruising and Denies lymphadenopathy Allergic/Immunologic Allergic/Immunologic: Denies throat swelling PFSH All Active Problems Leukocytosis (Acute) Sepsis (Acute) Respiratory failure with hypoxia (Acute) Pneumonia (Acute) Atrial fibrillation (Chronic) Constipation (Chronic) Obesity (BMI 30.0-34.9) (Chronic) History of prostate cancer (Acute) Urethral stricture (Chronic) Polyp of colon (Chronic) Neuropathy (Chronic 09/12/13) Cardiomyopathy (Chronic 03/14/13) EF of 15% Now 50-55% Atrial flutter (Chronic 03/14/13) Alcohol abuse (Chronic) Anticoagulated on warfarin (Chronic) Retention of urine (Chronic) BPH (benign prostatic hyperplasia) (Chronic) Anemia (Chronic) 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 Diabetes mellitus (Chronic 03/14/13) Essential hypertension (Chronic 09/11/13) Hyperlipidemia (Chronic 03/14/13) Medical History Old myocardial infarction Urethral stricture Surgical History Hx of colonoscopy Hx of melanoma excision Family History Mother , 78 Cancer Father , 83 Brain cancer Brother Essential hypertension Brother Diabetes Brother Stroke Social History Smoking/Tobacco Use Status: Never Second Hand Exposure: Yes Smoking risk assessment performed?: Yes Alcohol Intake: current Alcohol Intake frequency: a few times a week Alcohol type: beer Drug use: Occasionally Substance use type: marijuana Details: alcohol: t-5, couple beers. Marijuana: many months Caregiver/Support person: No Household members: none Housing: house Communication Needs: None Do you need help understanding health information?: Never Pets and animals: Yes Pets and animals: cat(s) Sexually active: No Do you think of yourself as: straight/heterosexual Current gender identity: male What is your relationship status?: never How often do you talk on the phone with friends or family?: three or more times per week How often do you get together with friends or relatives?: decline to answer How often do you attend restorationism or holiness services?: decline to answer Do you belong to any clubs or organized social groups?: decline to answer Panel score (0-1 are the most socially isolated patients): 1 What type of physical activity do you participate in: none and 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) Sheri/Sikhism: No preference Special sheri needs: No Seatbelt use: always Helmet use: Yes Drive intox or ride w/intox scoop driver: No Do you feel safe at home: Yes Do you feel safe in your relationship?: Yes Exam Const General: cooperative Orientation: alert, awake and oriented x3 HENMT Head: normal to inspection Ears: hearing grossly normal bilaterally, external ears normal and TM's normal bilaterally General nose exam: external nose normal Face and sinus: normal facial exam Mouth: oral mucosae normal Teeth and gingiva: dentition normal Throat: posterior oropharynx normal Eyes General: appearance normal, both eyes and all related structures Eyelids: eyelids normal Pupils: PERRL EOM: EOM intact bilaterally Neck Neck: normal visual inspection Lymphatic: no lymphadenopathy noted Chest Chest: normal inspection of the chest Resp Effort & Inspection: normal respiratory effort and able to speak in complete sentences Auscultation: wheezes expiratory wheezes and inspiratory wheezes Cardio Rate: tachycardic Rhythm: regular rhythm GI Inspection: normal to inspection and obesity Palpation: soft, not firm, no guarding, no hepatosplenomegaly, no masses and nontender Auscultation: normal bowel sounds Skin General skin exam: no rashes or lesions noted Neuro General: patient alert and patient awake Cognition: normal cognition Speech: speech normal Gait: normal gait Motor: muscle tone normal throughout Sensory Exam: no sensory deficits noted Extrem General: normal to inspection, full ROM, capillary refill normal and no edema Psych Appearance: grossly normal Mental Status: mental status grossly normal Speech and Movement: speech and movement normal Affect: normal affect Thought Process: normal
--- NOTE | 2022-03-31 18:45 | RT.EKG_ITS ---
APPROVED REPORT Exam: Resting ECG Reason for Exam: shortness of breath Patient Location: E HR:116 bpm ECG Measurements Heart Rate 116 AXIS [place] [id number] P [id number] QRSd 145 QRS 129 QT 351 T -3 QTc 489 Conclusion Atrial fibrillation...V-rate 88-153, irreg A-activity RBBB and LPFB...QRSd >120mS, axis(90,210) Anterior infarct, old...Q >40mS, abnormal ST-T, V2-V5. Afib. No STEMI. I have reviewed and interpreted ECG and agree with software generated interpretation.
--- NOTE | 2022-03-31 18:45 | DI.RAD_ITS ---
Exam(s) XR PORTABLE CHEST AP EXAM: XR PORTABLE CHEST AP CLINICAL HISTORY: fever, cough, r/o acute disease. TECHNIQUE: 2D digital imaging was performed. COMPARISON: CR,XR XR PORTABLE CHEST AP from 03/29/2020 FINDINGS: Single AP portable view. Heart size unchanged. The mediastinum is not widened. Left lung is clear but there is significant infiltrate evident in the lower right lung field. No obv ious pleural effusions IMPRESSION: Prominent right lower lung field infiltrate involving right middle/lower lobe. No obvious pleural ef fusions. DATA REPOSITORY: RADIATION DOSE DELIVERED: All CT scans at this facility use at least one of these dose optimization techniques: automated exposure control; mA and/or kV adjustment per patient size (includes targeted e xams where dose is matched to clinical indication); or iterative reconstruction.
[2022-03-31] MEDS: Albuterol/Ipratropium 3 ML UPD VIAL UPD (19:00)
[2022-03-31] MEDS: Normal Saline 1,000 ML 1000 ML IV (19:11)
[2022-03-31] MEDS: methylPREDNISolone SUCC 125 MG VIAL IVP (19:12)
[2022-03-31] MEDS: Albuterol 2.5 MG/3 ML INH SOLN VIAL 5 MG UPD (19:12)
[2022-03-31] MEDS: ACETAMINOPHEN 1,000 MG/100 ML BTL 400 MG IVPB (19:15)
[2022-03-31 19:28] LABS: Abs Immature Grans 0.08 10^3/uL (0.0-0.06); Absolute Basophil Count 0.03 10^3/uL (0.0-0.2); Absolute Lymphocyte Count 0.72 10^3/uL (1.2-3.4); Absolute Monocyte Count 0.88 10^3/uL (0.1-0.8); Absolute Neutrophil Count 12.33 10^3/uL (1.2-6.7); Basophils % 0.2; HCT 43.4 % (40.0-50.0); HGB 14.4 g/dL (13.5-17.5); Immature Grans % 0.6; Lymphocytes % 5.1; MCH 30.6 pg (27.0-33.0); MCHC 33.2 % (32.0-36.0); MCV 92 fL (80-95); Monocytes % 6.3; Neutrophils % 87.8; Platelet Count 248 10^3/uL (130-400); RBC 4.71 10^6/uL (4.36-5.78); RDW 13.1 % (11.8-14.1); RDW-SD 44.1 fL; WBC 14.04 10^3/uL (4.4-10.8)
[2022-03-31 19:33] LABS: ALT 28 U/L (16-63); AST 13 U/L (15-37); Albumin 3.6 g/dL (3.4-5.0); Alkaline Phosphatase 77 U/L (46-116); Anion Gap 10.7 mmol/L (3-11); BUN 19 mg/dL (7-18); Bilirubin, Total 0.7 mg/dL (0.2-1.0); CO2 24.3 mmol/L (21.0-32.0); CREATININE 1.3 mg/dL (0.70-1.30); Calcium 9.1 mg/dL (8.5-10.1); Chloride 103 mmol/L (98-107); Glucose 215 mg/dL (74-106); Magnesium 1.6 mg/dL (1.8-2.4); Potassium 4.6 mmol/L (3.5-5.1); Sodium 138 mmol/L (136-145); Total Protein 7.3 g/dL (6.4-8.2); Troponin I < 50 ng/L (<or=60)
[2022-03-31 20:04] LABS: COVID-19 PCR Negative (Negative); Influenza A PCR Negative (Negative); Influenza B PCR Negative (Negative); RSV PCR Negative (Negative)
[2022-03-31 20:06] LABS: Source Nasopharynx
[2022-03-31] MEDS: MAGNESIUM SULFATE 1 GM/100 ML BAG IVPB (20:06)
--- NOTE | 2022-03-31 20:24 | DI.VRAD_ITS ---
PROCEDURE INFORMATION: Exam: XR Chest Exam date and time: 03/31/2022 7:33 PM Age: 66 years old Clinical indication: Other: Fever, cough R/O acute disease TECHNIQUE: Imaging protocol: Radiologic exam of the chest. Views: 1 view. COMPARISON: XR PORTABLE CHEST AP 03/29/2020 12:36 PM FINDINGS: Tubes, catheters and devices: Monitoring wires noted. Lungs: Moderate opacity noted at the right lung base. Left lung is clear. Pulmonary vessels are not congested. Pleural spaces: Unremarkable. No pleural effusion. No pneumothorax. Heart/Mediastinum: No cardiomegaly. Right heart border is obscured. Bones/joints: Chronic deformity noted in the right mid clavicle. IMPRESSION: Right middle/lower lobe consolidation concerning for pneumonia. Follow-up to radiographic resolution recommended. Dictated and Authenticated by: Phillip Ward MD. Ordering:DESIRE Donnelly MD
[2022-03-31] MEDS: DOXYCYCLINE 100 MG in Normal Saline 100 ML IVPB (20:58)
--- NOTE | 2022-03-31 21:06 | HPE_ITS ---
Date of service: 03/31/22 Time of Service: 21:06 Assessment and Plan Assessment and plan (1) Pneumonia: Status: Acute Assessment and plan: 66 yo high risk patient admitted for observation and treatment of his pneumonia. He does have sepsis by SEPSIS-2 criteria and given his cardiac disease I beleive he is high risk enough to warrant overnight observation with a plan to discharge tomorrow if he remains stable and is able to wean off of oxygen (as I expect he will). - s/p ceftriaxone and doxy in the ED - Levaquin for a total 5 day course - sputum culture - if able to provide - f/u blood cultures - urine antigens for S. pneumo and legionella - repeat CXR in 4-6 weeks to assess for resolution Qualifiers: Laterality: right Lung location: middle lobe of lung Pneumonia type: due to unspecified organism Qualified Code(s): J18.9 - Pneumonia, unspecified organism (2) Respiratory failure with hypoxia: Status: Acute Assessment and plan: Required up to 5LPM upon initial ED arrival and quickly weaned down to 1 LPM. I suspect he may not need any supplemental O2 anymore. - wean O2 as able for saturations >90% - albuterol neb prn (3) Sepsis: Status: Acute Assessment and plan: He has fever, tachycardia and a white count in the setting of his pneumonia. This should quickly improve with antibiotics. - supportive care (4) Atrial fibrillation: Status: Chronic Assessment and plan: - continue home Eliquis (5) Constipation: Status: Chronic Assessment and plan: - continue home Miralax (6) Obesity (BMI 30.0-34.9): Status: Chronic (7) Cardiomyopathy: Status: Chronic Assessment and plan: Stable, vital signs are stable - continue home metoprolol - hold lisinopril for now (8) Diabetes mellitus: Status: Chronic Assessment and plan: - hold metformin for now (9) Essential hypertension: Status: Chronic Assessment and plan: - continue home amlodipine (10) Leukocytosis: Status: Acute Assessment and plan: Due to pneumonia - monitor (11) Hypomagnesemia: Status: Acute Assessment and plan: - s/p 1g replacement in the ED History of Present Illness Narrative: This is a 66 yo man with a medical history significant for cardiomyopathy, followed by Dr. Adams and Chong lopez Eliquleticia who presents to the ED with SOB and cough for about 1 week. In the ED he was found to have hypoxic respiratory failure requiring supplemental O2, significant fever and on chest xray found to have a pneumonia. He has a negative flu, RSV and COVID tests. His CXR finds a RLL and RML pneumonia. He has recently seen both his PCP and cardiology who renewed his prescriptions and state he had been compliant with his medication regimen and was stable on this. He is feeling much better with the treatments he has been provided. 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 Currently, his cough is improved and his breathing feels much easier. He is doing much better on re-assessment this morning and likely will be able to go home today. Review of Systems All systems reviewed & are unremarkable except as noted in HPI and below PFSH All Active Problems (Updated 03/31/22 @ 21:36 by Jory Trinh MD) Hypomagnesemia (Acute) Leukocytosis (Acute) Sepsis (Acute) Respiratory failure with hypoxia (Acute) Pneumonia (Acute) Hypoxia (Acute) Fever (Acute) On supplemental oxygen by nasal cannula (Acute) Atrial fibrillation (Chronic) Constipation (Chronic) Obesity (BMI 30.0-34.9) (Chronic) History of prostate cancer (Acute) Urethral stricture (Chronic) Polyp of colon (Chronic) Neuropathy (Chronic 09/12/13) Cardiomyopathy (Chronic 03/14/13) EF of 15% Now 50-55% Atrial flutter (Chronic 03/14/13) Alcohol abuse (Chronic) Anticoagulated on warfarin (Chronic) Retention of urine (Chronic) BPH (benign prostatic hyperplasia) (Chronic) Anemia (Chronic) Peripheral neuropathy (Chronic) Secondary to Guillain-Stapels? Diabetes mellitus (Chronic 03/14/13) Essential hypertension (Chronic 09/11/13) Hyperlipidemia (Chronic 03/14/13) Medical History Old myocardial infarction Urethral stricture Surgical History Hx of colonoscopy Hx of melanoma excision Family History Mother , 78 Cancer Father , 83 Brain cancer Brother Essential hypertension Brother Diabetes Brother Stroke Social History Smoking/Tobacco Use Status: Never Second Hand Exposure: Yes Smoking risk assessment performed?: Yes Alcohol Intake: current Alcohol Intake frequency: a few times a week Alcohol type: beer Drug use: Occasionally Substance use type: marijuana Details: alcohol: t-5, couple beers. Marijuana: many months Caregiver/Support person: No Household members: none Housing: house Communication Needs: None Do you need help understanding health information?: Never Pets and animals: Yes Pets and animals: cat(s) Sexually active: No Do you think of yourself as: straight/heterosexual Current gender identity: male What is your relationship status?: never How often do you talk on the phone with friends or family?: three or more times per week How often do you get together with friends or relatives?: decline to answer How often do you attend zoroastrian or baptism services?: decline to answer Do you belong to any clubs or organized social groups?: decline to answer Panel score (0-1 are the most socially isolated patients): 1 What type of physical activity do you participate in: none and 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) Sheri/Jain: No preference Special sheri needs: No Seatbelt use: always Helmet use: Yes Drive intox or ride w/intox courtesy van driver: No Do you feel safe at home: Yes Do you feel safe in your relationship?: Yes Meds Allergies and Home Medications Allergies Allergy/AdvReac Type Severity Reaction Status Date / Time codeine Allergy Mild RASH Verified 03/31/22 20:41 Tetanus Vaccines and Toxoid AdvReac Severe H/O Verified 03/31/22 20:41 Guillian-[place] Home Medications Medication Instructions Recorded Confirmed Type cyanocobalamin (vitamin B-12) 1,000 mcg PO DAILY #30 tab-caps 02/22/17 03/31/22 History 1,000 mcg tablet (Vitamin B-12) blood-glucose meter (Blood Glucose #1 ea 05/21/20 03/31/22 Rx Monitoring kit) tadalafil 5 mg tablet (Cialis) 5 mg PO DAILY PRN sexual activity 04/22/21 03/31/22 Rx #10 tabs terazosin 1 mg capsule 2 mg PO BID #360 caps 07/21/21 03/31/22 Rx amlodipine 5 mg tablet 5 mg PO DAILY #90 tab-caps 12/31/21 03/31/22 Rx apixaban 5 mg tablet (Eliquis) See Rx Instructions .Route 01/05/22 03/31/22 Rx .COMPLEX #180 tabs Blood Glucose Test (blood sugar #200 ea 01/27/22 03/31/22 Rx diagnostic) lancets 30 gauge #200 ea 01/27/22 03/31/22 Rx metoprolol succinate 50 mg 50 mg PO DAILY #90 tabs 03/08/22 03/31/22 Rx tablet,extended release 24 hr polyethylene glycol 3350 17 17 g PO DAILY #510 grams 03/08/22 03/31/22 Rx gram/dose oral powder (Miralax) metformin 500 mg tablet 1,000 mg PO .q12 #360 tabs 03/12/22 03/31/22 Rx hydrochlorothiazide 25 mg tablet 25 mg PO DAILY #90 tab-caps 03/29/22 03/31/22 Rx lisinopril 40 mg tablet 40 mg PO DAILY #90 tab-caps 03/29/22 03/31/22 Rx pravastatin 40 mg tablet 40 mg PO DAILY #90 tab-caps 03/29/22 03/31/22 Rx Exam Narrative Exam Narrative: Gen: NAD, normal respiratory effort, well-nourished HENT: PERRL, nasal turbinates normal without erythema or inflammation, moist o ral mucosa, Mallampati 2, No LAD or JVD Chest: No respiratory distress, normal appearance of chest, clear to auscultation bilaterally, no crackles or wheezes, normal inspiratory effort Heart: regular rate and rhythym, no murmurs, rubs or gallops Abdomen: Non-distended, soft, non tender Extremities: No clubbing, edema, cyanosis, rashes Neuro: AAOx3 , non focal Psych: cooperative, appropriate mental affect Results Labs Result diagrams: 04/01/22 05:55 04/01/22 05:55 Labs: Laboratory Results - last 24 hr 03/31/22 03/31/22 03/31/22 19:10 19:10 19:10 WBC 14.04 H RBC 4.71 Hgb 14.4 Hct 43.4 MCV 92 MCH 30.6 MCHC 33.2 RDW 13.1 Plt Count 248 MPV 10.0 Immature Gran % 0.6 Neutrophils % 87.8 Lymphocytes % 5.1 Monocytes % 6.3 Eosinophils % 0.0 Basophils % 0.2 Nucleated RBC % 0.0 Absolute Neutrophils 12.33 H Absolute Lymphocytes 0.72 L Absolute Monocytes 0.88 H Absolute Eosinophils 0.00 Absolute Basophils 0.03 Sodium 138 Potassium 4.6 Chloride 103 Carbon Dioxide 24.3 Anion Gap 10.7 BUN 19 H Creatinine 1.3 Estimated GFR/1.73 m2 55.40 Glucose 215 H Calcium 9.1 Magnesium 1.6 L Total Bilirubin 0.7 AST 13 L ALT 28 Alkaline Phosphatase 77 Troponin I < 50 Total Protein 7.3 Albumin 3.6 COVID-19 Source Nasopharynx SARS-CoV-2 (PCR) Negative Influenza Type A (PCR) Negative Influenza Type B (PCR) Negative RSV (PCR) Negative Last Vital Signs Temp 39.4 C H 03/31/22 18:42 Pulse 93 H 03/31/22 20:30 Resp 22 03/31/22 20:40 BP 117/64 03/31/22 20:30 Pulse Ox 94 03/31/22 20:40
[2022-03-31] MEDS: cefTRIAXone 2 GM/50 ML BAG IVPB (22:20)
[2022-03-31] MEDS: Apixaban 5 MG TAB PO (22:28)
[2022-04-01 03:19] VITALS: BP 107/65; PULSE 88; RESP 20; TEMP 35.7; O2SAT 97
[2022-04-01 06:43] LABS: HCT 40.9 % (40.0-50.0); HGB 13.8 g/dL (13.5-17.5); MCH 30.9 pg (27.0-33.0); MCHC 33.7 % (32.0-36.0); MCV 92 fL (80-95); MPV 10.6 fL (8.0-11.0); Platelet Count 218 10^3/uL (130-400); RBC 4.46 10^6/uL (4.36-5.78); RDW 13.2 % (11.8-14.1); RDW-SD 44.7 fL; WBC 24.43 10^3/uL (4.4-10.8)
[2022-04-01 06:57] LABS: Anion Gap 13.8 mmol/L (3-11); BUN 22 mg/dL (7-18); CO2 22.2 mmol/L (21.0-32.0); CREATININE 1.5 mg/dL (0.70-1.30); Calcium 8.6 mg/dL (8.5-10.1); Chloride 101 mmol/L (98-107); Estimated GFR 46.97 (mL/min/1.73m2); Glucose 332 mg/dL (74-106); Potassium 4.8 mmol/L (3.5-5.1); Sodium 137 mmol/L (136-145)
[2022-04-01 07:40] VITALS: BP 120/78; PULSE 88; RESP 18; TEMP 36.6; O2SAT 98
[2022-04-01] MEDS: hydroCHLOROthiazide 25 MG TAB PO (08:25)
[2022-04-01] MEDS: Polyethylene Glycol 3350 17 GM PACKET PO (08:25)
[2022-04-01] MEDS: Metoprolol CR 50 MG TABCR PO (08:25)
[2022-04-01] MEDS: levoFLOXacin 500 MG, levoFLOXacin 250 MG 750 MG PO (08:25)
[2022-04-01] MEDS: Apixaban 5 MG TAB PO (08:25)
[2022-04-01] MEDS: Pravastatin 40 MG TAB PO (08:26)
[2022-04-01] MEDS: amLODIPine 5 MG TAB PO (08:26)
--- NOTE | 2022-04-01 08:28 | INITIAL_ITS ---
- If Service Date Differs Date of service: 04/01/22 Time of Service: 08:28 Care Management Initial Assess REASON FOR HOSPITALIZATION:: Pneumonia PAST MEDICAL HISTORY/PAST SURGICAL HISTORY:: All Active Problems (Updated 03/31/22 @ 21:36 by Jory Trinh MD). Hypomagnesemia (Acute). Leukocytosis (Acute). Sepsis (Acute). Respiratory failure with hypoxia (Acute). Pneumonia (Acute). Hypoxia (Acute). Fever (Acute). On supplemental oxygen by nasal cannula (Acute). Atrial fibrillation (Chronic). Constipation (Chronic). Obesity (BMI 30.0-34.9) (Chronic). History of prostate cancer (Acute). Urethral stricture (Chronic). Polyp of colon (Chronic). Neuropathy (Chronic 09/12/13). Cardiomyopathy (Chronic 03/14/13). EF of 15%. Now 50-55%. Atrial flutter (Chronic 03/14/13). Alcohol abuse (Chronic). Anticoagulated on warfarin (Chronic). Retention of urine (Chronic). BPH (benign prostatic hyperplasia) (Chronic). Anemia (Chronic). 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 Diabetes mellitus (Chronic 03/14/13). Essential hypertension (Chronic 09/11/13). Hyperlipidemia (Chronic 03/14/13). Medical History . Old myocardial infarction. Urethral stricture. Surgical History . Hx of colonoscopy. Hx of melanoma excision PREVIOUS FUNCTIONAL STATUS/SOCIAL/FAMILY SUPPORTS:: Kyle lives in [place]. ADVANCE DIRECTIVES:: None on file, will offer forms. Has patient been provided with info about the portal/API?: Yes Did the patient sign up for the portal?: No CODE STATUS:: Full Code [facility]ANCE [facility] PR[facility] PHYSICIAN:: Deanna Ferreira Medical PATIENT/FAMILY EDUCATION NEEDS:: Review discharge instructions, limitations, medications and plan to follow up with community providers. ask me three. TRANSPORTATION:: Via private vehicle with family. PLAN:: Anticipate Kyle will discharge home via private vehicle with family. He will follow up with community providers and discharge plan as prescribed. No new [facility] services are indicated at this time. CM will continue to support discharge planning needs.
[2022-04-01] MEDS: Cyanocobalamin 500 MCG TAB 1000 MCG PO (10:37)
[2022-04-01 12:02] VITALS: BP 122/70; PULSE 88; RESP 18; TEMP 36.6; O2SAT 97
--- NOTE | 2022-04-01 14:43 | W.PM.DS.N ---
Date of service: 04/01/22 Time of Service: 15:32 DS: Diagnosis Discharge Diagnosis (1) Pneumonia: Status: Acute (2) Respiratory failure with hypoxia: Status: Acute (3) Sepsis: Status: Acute (4) Atrial fibrillation: Status: Chronic (5) Constipation: Status: Chronic (6) Obesity (BMI 30.0-34.9): Status: Chronic (7) Cardiomyopathy: Status: Chronic (8) Diabetes mellitus: Status: Chronic (9) Essential hypertension: Status: Chronic (10) Leukocytosis: Status: Acute (11) Hypomagnesemia: Status: Resolved Discharge Plan Disposition Patient Disposition: HOME Condition: Stable Discharge Details Reason For Visit: Pneumonia Admit Date/Time: 03/31/22 20:35 Admit Provider: Phillip Jackson Attending Provider: Phillip Jackson Primary Care Provider: Julia Delgado Hospital Course Hospital Course: This yo man with a medical history significant for cardiomyopathy, followed by Dr. Adams and Chong Carvajal presented to the ED with SOB and cough for about 1 week. In the ED he was found to have hypoxic respiratory failure requiring supplemental O2, significant fever and on chest xray found to have a pneumonia. He has a negative flu, RSV and COVID tests. His CXR finds a RLL and RML pneumonia.He has recently seen both his PCP and cardiology who renewed his prescriptions and state he had been compliant with his medication regimen and was stable on this. He began feeling better after breakfast today and was insistant on going home. His SPO2 stayed over 94% on room air. He was able to walk about 300 feet without becoming short of breath and did maintain sats above 94%. He is afebrile. BP and HR stable. We discussed the risk of leaving. He still insisted on leaving. I asked Dr Burris to go speak with him about risks as well, he did. Kyle agreed to receiving a dose of insulin and sticking around for a couple of hours. IN discussion and review with Dr Burris, it was decided he would be discharged to home on levoquin - 750 mg for 9 days. I encouraged him to return if he got a fever, difficulty breathing, or chest pain. He said he would. Home Meds and New Rx's Prescriptions: New levofloxacin 750 mg Tablet 750 mg PO QAM Qty: 9 0RF Continued (DME) blood-glucose meter [Blood Glucose Monitoring] Kit See Rx Instructions .ROUTE .MEDSUPPLY Qty: 1 0RF Rx Instructions: As directed metoprolol succinate 50 mg tablet extended release 24 hr 50 mg PO DAILY Qty: 90 3RF polyethylene glycol 3350 [Miralax] 17 gram/dose powder 17 g PO DAILY Qty: 510 6RF tadalafil [Cialis] 5 mg tablet 5 mg PO DAILY PRN (Reason: sexual activity) Qty: 10 0RF Rx Instructions: administer approximately 30min before sexual activity; do not use more than 1 dose per 24hrs terazosin 1 mg capsule 2 mg PO BID Qty: 360 3RF cyanocobalamin (vitamin B-12) [Vitamin B-12] 1,000 MCG tablet 1,000 mcg PO DAILY Qty: 30 amlodipine 5 mg tablet 5 mg PO DAILY Qty: 90 3RF Eliquis 5 mg tablet See Rx Instructions .ROUTE .COMPLEX Qty: 180 3RF Dose Instruction: TAKE 1 TABLET BY MOUTH TWICE DAILY Rx Instructions: TAKE 1 TABLET BY MOUTH TWICE DAILY (DME) lancets 30 gauge misc See Rx Instructions .ROUTE .MEDSUPPLY Qty: 200 3RF Rx Instructions: Twice daily (DME) Blood Glucose Test Strip See Rx Instructions .ROUTE .MEDSUPPLY Qty: 200 3RF Rx Instructions: Twice daily metformin 500 mg tablet 1,000 mg PO .q12 Qty: 360 1RF hydrochlorothiazide 25 mg tablet 25 mg PO DAILY Qty: 90 4RF lisinopril 40 mg tablet 40 mg PO DAILY Qty: 90 4RF pravastatin 40 mg tablet 40 mg PO DAILY Qty: 90 4RF Discharge Instructions Instructions: Fever in Adults (GEN), Community Acquired Pneumonia (DC), Hypoxia (GEN), Diabetic Hyperglycemia (DC) Additional Instructions: We are reluctant to let you go home and encourage you to stay. With that said and you arer not willing to stay, please take all the antibiotics as prescribed, we have sent a prescription to your pharmacy. Take for the entire 9 days, even if you feel better. Please return to the Emergency Department for any increased fever, difficulty breathing, chest pain. We have ordered an ultrasound of your heart. The radiology department will reach out to you with an appointment. Stand Alone Forms: Nursing Discharge Form Referrals: Julia Delgado NP [Primary Care Provider] - 04/08/22 7:20 am (follow up early next week) Activity:: Activity as Tolerated Equipment/Supplies:: No Equipment Needed Diet:: Carb Counting Discharge Orders Discharge Orders: Discharge Order (Routine); Ordered 04/01/22 Ordered By: Haily Clements Discharge Data Discharge Date/Time-TO BE ENTERED AT DEPARTURE: 04/01/22 16:21 DS: Summary Time Spent with Patient providing and/or coordinating discharge services: Greater than 30 minutes Status at Discharge Functional status at discharge: independent ambulation Overall status at discharge: patient is progressing back to baseline Mental Status: mental status grossly normal Speech and Movement: speech and movement normal Mood: congruent mood Affect: normal affect Exam Psych Mental Status: mental status grossly normal Speech and Movement: speech and movement normal Mood: congruent mood Affect: normal affect DS: Data Vitals/I&O Vitals and I&O: Vital Signs Temperature 36.6 C 04/01/22 12:02 Temperature Source Skin 04/01/22 12:02 Pulse 88 04/01/22 12:02 Pulse Rhythm Irregular 04/01/22 10:40 Pulse Strength Normal 03/31/22 20:12 Pulse 121 H 03/31/22 20:40 Respiratory Rate 18 04/01/22 12:02 Respiratory Effort 04/01/22 10:40 Respiratory Depth Normal 04/01/22 10:40 Respiratory Pattern Normal 04/01/22 10:40 Blood Pressure 122/70 04/01/22 12:02 Blood Pressure Mean 75 03/31/22 20:30 Blood Pressure Position Supine 03/31/22 18:42 Pulse Oximetry 97 04/01/22 12:02 Oxygen Delivery Method Room Air 04/01/22 12:02 Oxygen Flow Rate 0 04/01/22 12:02 Pain Level 0 04/01/22 12:02 Intake & Output 03/31/22 04/01/22 04/01/22 23:59 11:59 23:59 Intake Total 1200 / 1200 600 / 600 Output Total 550 / 550 Balance 1200 / 1200 50 / 50 Weight 89.811 kg Intake: IV 1200 / 1200 Oral 600 / 600 Output: Urine 550 / 550 Other: Urine Color Light [place] Urine Appearance Clear Urine Odor None Voiding Methods Urinal Data Completed and Pending Labs on day of discharge: Labs from last 24 hours 04/01/22 04/01/22 04/01/22 05:55 05:55 03:18 WBC 24.43 H RBC 4.46 Hgb 13.8 Hct 40.9 MCV 92 MCH 30.9 MCHC 33.7 RDW 13.2 Plt Count 218 MPV 10.6 Immature Gran % Neutrophils % Lymphocytes % Monocytes % Eosinophils % Basophils % Nucleated RBC % Absolute Neutrophils Absolute Lymphocytes Absolute Monocytes Absolute Eosinophils Absolute Basophils Sodium 137 Potassium 4.8 Chloride 101 Carbon Dioxide 22.2 Anion Gap 13.8 H BUN 22 H Creatinine 1.5 H Estimated GFR/1.73 m2 46.97 Glucose 332 H Calcium 8.6 Magnesium 2.0 Total Bilirubin AST ALT Alkaline Phosphatase Troponin I Total Protein Albumin COVID-19 Source SARS-CoV-2 (PCR) Influenza Type A (PCR) Influenza Type B (PCR) Urine Legionella Ag Pending RSV (PCR) Ur Strep pneumoniae Ag Pending 03/31/22 03/31/22 03/31/22 19:10 19:10 19:10 WBC 14.04 H RBC 4.71 Hgb 14.4 Hct 43.4 MCV 92 MCH 30.6 MCHC 33.2 RDW 13.1 Plt Count 248 MPV 10.0 Immature Gran % 0.6 Neutrophils % 87.8 Lymphocytes % 5.1 Monocytes % 6.3 Eosinophils % 0.0 Basophils % 0.2 Nucleated RBC % 0.0 Absolute Neutrophils 12.33 H Absolute Lymphocytes 0.72 L Absolute Monocytes 0.88 H Absolute Eosinophils 0.00 Absolute Basophils 0.03 Sodium 138 Potassium 4.6 Chloride 103 Carbon Dioxide 24.3 Anion Gap 10.7 BUN 19 H Creatinine 1.3 Estimated GFR/1.73 m2 55.40 Glucose 215 H Calcium 9.1 Magnesium 1.6 L Total Bilirubin 0.7 AST 13 L ALT 28 Alkaline Phosphatase 77 Troponin I < 50 Total Protein 7.3 Albumin 3.6 COVID-19 Source Nasopharynx SARS-CoV-2 (PCR) Negative Influenza Type A (PCR) Negative Influenza Type B (PCR) Negative Urine Legionella Ag RSV (PCR) Negative Ur Strep pneumoniae Ag 03/31/22 22:15 Sputum Sputum Culture - Pending Preliminary micro results at discharge 03/31/22 20:50 Blood Culture - Preliminary Blood Gram Positive Cocci 03/31/22 20:55 Blood Culture - Preliminary Blood Gram Positive Cocci 03/31/22 22:15 Sputum Culture - Pending Sputum PFSH All Active Problems Leukocytosis (Acute) Sepsis (Acute) Respiratory failure with hypoxia (Acute) Pneumonia (Acute) Atrial fibrillation (Chronic) Constipation (Chronic) Obesity (BMI 30.0-34.9) (Chronic) History of prostate cancer (Acute) Urethral stricture (Chronic) Polyp of colon (Chronic) Neuropathy (Chronic 09/12/13) Cardiomyopathy (Chronic 03/14/13) EF of 15% Now 50-55% Atrial flutter (Chronic 03/14/13) Alcohol abuse (Chronic) Anticoagulated on warfarin (Chronic) Retention of urine (Chronic) BPH (benign prostatic hyperplasia) (Chronic) Anemia (Chronic) 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 Diabetes mellitus (Chronic 03/14/13) Essential hypertension (Chronic 09/11/13) Hyperlipidemia (Chronic 03/14/13) Medical History Old myocardial infarction Urethral stricture Surgical History Hx of colonoscopy Hx of melanoma excision Family History Mother , 78 Cancer Father , 83 Brain cancer Brother Essential hypertension Brother Diabetes Brother Stroke Social History Smoking/Tobacco Use Status: Never Second Hand Exposure: Yes Smoking risk assessment performed?: Yes Alcohol Intake: current Alcohol Intake frequency: a few times a week Alcohol type: beer Drug use: Occasionally Substance use type: marijuana Details: alcohol: t-5, couple beers. Marijuana: many months Caregiver/Support person: No Household members: none Housing: house Communication Needs: None Do you need help understanding health information?: Never Pets and animals: Yes Pets and animals: cat(s) Sexually active: No Do you think of yourself as: straight/heterosexual Current gender identity: male What is your relationship status?: never How often do you talk on the phone with friends or family?: three or more times per week How often do you get together with friends or relatives?: decline to answer How often do you attend buddhist or bahai services?: decline to answer Do you belong to any clubs or organized social groups?: decline to answer Panel score (0-1 are the most socially isolated patients): 1 What type of physical activity do you participate in: none and 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
[2022-04-01] MEDS: Insulin Glargine 300 UNITS/3 ML PEN 10 UNITS SC (15:24)
--- NOTE | 2022-04-01 16:04 | PDOC.CMDIS ---
- If Service Date Differs Date of service: 04/01/22 Time of Service: 16:04 LACE Index Scoring Tool - Questions: Length of Stay (in days): 1 Acuity (Admit via E.D.?): Yes Comorbidities: Previous M.I., Diabetes w/o Complication, Any Tumor, Metastatic Solid Tumor E.D. Visits: 1 - Answers: Total Score: 10 Risk of Readmission: High Risk Care Management Discharge Reason for Hospitalization: Pneumonia Discharge Plan: Discharge home via private vehicle with family. Continue RX for Levothyroxine as precribed. Follow up with PCP on 04/08/22 as scheduled and recommend repeat CXR in 4-6 weeks. Patient/Family Education Needs: Review discharge instructions, limitations, medications and plan to follow up with community providers. ask me three.
[2022-04-01 19:56] LABS: Legionella Ag Detection Urine Negative (Negative)
[2022-04-02 22:19] LABS: Streptococcus Pneumoniae Ag, U Positive (Negative)
== END 2022-04-01 16:21 | disposition home or self-care (01) ==
LOC: ER 20:43 → MS 21:26
PROVIDERS: Student in an Organized Health Care Education/Training Program; Admitting Provider Family Medicine; Emergency Provider Physician Assistant; Visit Provider Family Medicine
DX: A41.9 Sepsis, unspecified organism (principal); J18.9 Pneumonia, unspecified organism; J96.01 Acute respiratory failure with hypoxia; E83.42 Hypomagnesemia; E11.9 Type 2 diabetes mellitus without complications; I42.9 Cardiomyopathy, unspecified; I10 Essential (primary) hypertension; Z68.30 Body mass index [BMI] 30.0-30.9, adult; I48.91 Unspecified atrial fibrillation; Z20.822 Contact with and (suspected) exposure to COVID-19; K59.00 Constipation, unspecified; E78.5 Hyperlipidemia, unspecified; I48.92 Unspecified atrial flutter; Z85.46 Personal history of malignant neoplasm of prostate; E66.9 Obesity, unspecified; N35.819 Other urethral stricture, male, unspecified site; G62.9 Polyneuropathy, unspecified; F10.10 Alcohol abuse, uncomplicated; R33.9 Retention of urine, unspecified; D64.9 Anemia, unspecified; G65.0 Sequelae of Guillain-Barre syndrome; I25.2 Old myocardial infarction; I45.2 Bifascicular block; Z79.84 Long term (current) use of oral hypoglycemic drugs; Z79.01 Long term (current) use of anticoagulants
CPT/HCPCS: 36415; 36416; 80048; 80053; 82962; 85027; 87040; 87077; 87449; 87637; 93005; 96361; 96365; 96367; 96375; 99285; 71045; 83735; 84484; 85025; 87070; 87186; 87205; 87899; 93010; 99217; 99220; G0378; J0131; J2930; J3475; J3490; J7613; J7620

== ENCOUNTER → 2022-04-15 12:54 | Outpatient (BNVA) | payer MEDICARE, SELFPAY | PROVIDERS: Visit Provider Nurse Practitioner Gerontology | DX: R33.8 Other retention of urine (principal); N40.0 Benign prostatic hyperplasia without lower urinary tract symptoms; Z85.46 Personal history of malignant neoplasm of prostate | CPT/HCPCS: 36415; 51798; 99214 ==

== ENCOUNTER 2022-04-15 14:37 | Outpatient (REF) | payer MEDICARE, SELFPAY ==
[2022-04-15 22:24] LABS: PSA, Diagnostic <0.1 ng/mL (<=4.5)
== END 2022-04-15 14:38 | disposition home or self-care (01) ==
LOC: LBN 14:37
PROVIDERS: Visit Provider Nurse Practitioner Gerontology
DX: C61 Malignant neoplasm of prostate (principal)
CPT/HCPCS: 84153

== ENCOUNTER → 2022-04-22 09:22 | Outpatient (BNVA) | payer MEDICARE, SELFPAY | PROVIDERS: Visit Provider Nurse Practitioner Adult Health | DX: G63 Polyneuropathy in diseases classified elsewhere (principal); E53.8 Deficiency of other specified B group vitamins; G89.29 Other chronic pain; E11.9 Type 2 diabetes mellitus without complications; G61.0 Guillain-Barre syndrome; Z72.89 Other problems related to lifestyle | CPT/HCPCS: 99213; 99214 ==

== ENCOUNTER → 2023-06-16 15:11 | Outpatient (BNVA) | payer MEDICARE, SELFPAY | PROVIDERS: PCP Nurse Practitioner Family; Referring Provider Nurse Practitioner Family; Visit Provider Nurse Practitioner Adult Health | DX: G61.0 Guillain-Barre syndrome (principal); E11.9 Type 2 diabetes mellitus without complications; D51.9 Vitamin B12 deficiency anemia, unspecified; I10 Essential (primary) hypertension | CPT/HCPCS: 99213 ==

== ENCOUNTER → 2023-07-19 08:09 | Outpatient (BNVA) | payer MEDICARE, SELFPAY | PROVIDERS: PCP Nurse Practitioner Family; Referring Provider Nurse Practitioner Family; Visit Provider Nurse Practitioner Gerontology | DX: N40.1 Benign prostatic hyperplasia with lower urinary tract symptoms (principal); R33.9 Retention of urine, unspecified; Z85.46 Personal history of malignant neoplasm of prostate; I10 Essential (primary) hypertension | CPT/HCPCS: 51798; 99214 ==

== ENCOUNTER → 2023-07-19 09:07 | Outpatient (BNVA) | payer MEDICARE, SELFPAY | PROVIDERS: PCP Nurse Practitioner Family; Referring Provider Nurse Practitioner Family; Visit Provider Internal Medicine Cardiovascular Disease | DX: I42.9 Cardiomyopathy, unspecified (principal); I48.21 Permanent atrial fibrillation; Z79.01 Long term (current) use of anticoagulants; R05.9 Cough, unspecified; I10 Essential (primary) hypertension; E11.9 Type 2 diabetes mellitus without complications | CPT/HCPCS: 99214 ==